=== PATIENT | female | born 1990 | race Caucasian/White ===

== ENCOUNTER 2016-09-28 00:11 | Inpatient (IN) | payer OTHER ==
[2016-09-28] VITALS (10 sets, daily range): BP systolic 86–103; BP diastolic 48–63; PULSE 92–136; TEMP 36.7–38.7; O2SAT 95–100; Ht 167.6 cm; Wt 64.3 kg
[~2016-09-28] VITALS: Ht 167.6 cm; Wt 64.3 kg
[2016-09-28] MEDS ORDERED: SODIUM CHLORIDE 0.9% 1000ML 2,000 ML IV STA (00:49)
[2016-09-28] MEDS ORDERED: LORAZEPAM 2 MG/ML 1 ML VIAL IV STA (00:49)
[2016-09-28] MEDS ORDERED: SODIUM CHLORIDE 0.9% 1000ML 1,000 ML IV STA ×3 (00:49→16:33)
[2016-09-28] MEDS ORDERED: ACETAMINOPHEN 500 MG TAB PO STA ×2 (01:03→04:55)
[2016-09-28] MEDS ORDERED: CEFTRIAXONE SOD INJ 2,000 MG in DEXTROSE 5% 50ML 50 ML IV STA (01:03)
[2016-09-28] MEDS ORDERED: OPTIRAY 320 IV PRN (01:15)
[2016-09-28] MEDS ORDERED: VANCOMYCIN INJ 1,650 MG in SODIUM CHLORIDE 0.9% 500ML 500 ML IV SCH (01:15)
[2016-09-28] MEDS ORDERED: METOCLOPRAMIDE HCL INJ 5 MG/ML 2 ML VIAL IV STA (01:26)
[2016-09-28] MEDS ORDERED: DiphenhydrAMINE HCL 50 MG/ML VIAL IV STA (01:26)
[2016-09-28 01:28] LABS: ISTAT CREATININE 0.7 mg/dl (0.6-1.3); ISTAT HEMOGLOBIN 11.2 g/dl (12.0-16.0); ISTAT IONIZED CALCIUM 0.97 mmol/l (1.12-1.32)
[2016-09-28 01:37] LABS: INR 1.2 (0.9-1.1); PARTIAL THROMBOPLASTIN RATIO 1.4; PROTHROMBIN TIME (PATIENT) 12.4 SECONDS (9.0-12.0)
[2016-09-28] MEDS ORDERED: IBUPROFEN 800 MG TAB PO STA (01:38)
[2016-09-28 01:46] LABS: HEMATOCRIT 30.3 % (37-47); MEAN CELL VOLUME 77.5 fL (80-100); MEAN CORPUSCULAR HEMOGLOBIN 26.6 pg (25-34); MEAN CORPUSCULAR HGB CONC 34.3 g/dl (32-36); MEAN PLATELET VOLUME 12.5 fL (7.4-10.4); PLATELET COUNT 69 K/uL (130-400); RED BLOOD COUNT 3.91 M/uL (4.2-5.4); WHITE BLOOD COUNT 7.93 K/uL (4.8-10.8)
[2016-09-28 01:47] LABS: BASO % 0.1 %; BASO ABS # 0.01 K/uL (0-0.2); COMPLETE YES; EOS % 0.5 %; IG% 0.8 %; LYMPH % 7.1 %; LYMPH ABS # 0.56 K/uL (1.2-3.4); MONO % 9.6 %; NEUT % 81.9 %; PLT ESTIMATE DECREASED
[2016-09-28] MEDS ORDERED: IBUPROFEN 600 MG TAB ONE (01:47)
[2016-09-28] MEDS ORDERED: IBUPROFEN 200 MG TAB ONE (01:47)
[2016-09-28 01:52] LABS: ALT/SGPT 22 U/L (12-78); AST/SGOT 36 U/L (15-37); BLOOD UREA NITROGEN 10 mg/dl (7-18); BUN/CREATININE RATIO 12.4 (10-20); CALCIUM 7.9 mg/dl (8.5-10.1); CARBON DIOXIDE 26 mmol/L (21-32); CHLORIDE 93 mmol/L (98-107); CREATININE 0.81 mg/dl (0.60-1.20); GLUCOSE 118 mg/dl (70-99); POTASSIUM 3.4 mmol/L (3.5-5.1); SODIUM 130 mmol/L (136-145)
[2016-09-28 01:57] LABS: PREG INTERNAL NEGATIVE QC NEG CLEAR BACKGROUND; PREG INTERNAL POSITIVE QC POS CONTROL LINE
[2016-09-28] MEDS ORDERED: CLON0.1T12 (02:01)
[2016-09-28 02:03] LABS: ACETAMINOPHEN < 2 ug/ml (10-30); ALB/GLOB RATIO 0.7 (0.9-2); ALKALINE PHOSPHATASE 73 U/L (45-117); CKMB/CK RATIO 0.2 (0-3.0); THYROID STIMULATING HORMONE 0.355 uIu/ml (0.300-4.500)
[2016-09-28 02:12] LABS: PROCALCITONIN 6.66 ng/mL (0-0.5)
--- NOTE | 2016-09-28 04:33 | EMERGENCY ROOM VISIT NOTE ---
History First contact with patient: 00:27 Chief Complaint: RIB PAIN Stated Complaint: POSSIBLE BROKEN RIB,POSSIBLY DRUGGED History of Present Illness The patient is a 25 year old female who presents to the Emergency Room with complaints of chest pain, fever, chills for the past day. Patient states she woke up today at noon and the [employer]. She has no idea how she got there. Patient states last thing she remembers she was going out with her friends Mike night. She cannot recall any other events. Patient is currently reliving with her parents. Patient states she took 24 tablets of some type of medication that might of been Tylenol, Motrin or something else. Patient is unsure. She states she is trying to get the pain to go away in her chest. Patient is screaming and yelling at staff and making it difficult to obtain a history. Patient is unsure of what happened to her. Patient denies abdominal pain, cough, congestion, vomiting, diarrhea, headache, neck stiffness. Patient adamantly denies IV drug abuse despite the fact she has multiple track marcano all throughout her body. Review of Systems See HPI for pertinent positives & negatives. A total of 10 systems reviewed and were otherwise negative. Past Medical/Surgical History Medical Problems: (1) Alcohol Abuse-Unspec (2) Attn Deficit W Hyperact (3) Cannabis Abuse-Unspec (4) Depressive Disorder Nec (5) Oppositional Defiant Disorder (6) Ovarian cyst (7) Pelvic inflammatory disease (8) Tobacco Use Disorder Family History No significant family history Social History Smoking Status: Never Smoker Alcohol Use: occasionally Drug Use: marijuana Housing Status: lives with family, lives with friends Occupation Status: unemployed Current/Historical Medications Miscellaneous Medications Clonidine Hcl (Catapres) Allergies Coded Allergies: No Known Allergies (Verified , 07/08/14) Physical Exam Vital Signs Date Time Temp Pulse Resp B/P Pulse Ox O2 Delivery O2 Flow Rate FiO2 09/28/16 03:35 108 28 121/54 96 Room Air 09/28/16 03:00 119 25 112/49 96 Room Air 09/28/16 02:48 117 09/28/16 02:30 121 30 98 Room Air 09/28/16 02:07 100 Room Air 09/28/16 02:00 133 29 100 Room Air 09/28/16 01:55 129 22 133/70 100 Room Air 09/28/16 00:16 39.5 124 20 117/60 99 Room Air Physical Exam VITALS: Vitals are noted on the nurse's note and reviewed by myself. Vital signs febrile GENERAL: White female yelling and screaming at staff multiple track marcano and skin popping throughout body SKIN: Upper arms with track marcano and skin popping and mottled skin, skin popping to face and chest , bruising to upper and lower extremities The rest of the skin was without rashes, edema. There is no tenting of the skin. Capillary reflex less than 2 seconds. HEAD: Normocephalic atraumatic. EARS: External auditory canals clear, tympanic membranes pearly jeong without erythema or effusion bilaterally. EYES: Pupils equal round and reactive to light and accommodation. Conjunctivae without injection, sclerae without icterus. Extraocular movements intact. NOSE: Patent, turbinates without inflammation or discharge. No sinus tenderness. MOUTH: Mucous membranes mildly dry. Pharynx without erythema or exudate. Uvula midline. Airway patent. Tongue does not deviate. NECK: Supple without nuchal rigidity. No lymphadenopathy. No thyromegaly. Cervical spine is nontender. No JVD. HEART: Regular rate and rhythm 2/6 systolic murmur LUNGS: Clear to auscultation bilaterally without wheezes, rales or rhonchi. No dullness to percussion. No retractions or accessory muscle use., Chest diffusely tender to palpation ABDOMEN: Positive bowel sounds x 4. Normal tympanic percussion. Soft, nontender, without masses or organomegaly. Cruz sign negative. No guarding or rebound tenderness. MUSCULOSKELETAL: No muscle atrophy, erythema, or edema noted. NEURO: Patient was alert and oriented to person place and time. Normal sensation to light and sharp touch. No focal neurological deficits. Medical Decision & Procedures Laboratory Results 09/28/16 01:00 Red Blood Count 3.91, Mean Corpuscular Volume 77.5, Mean Corpuscular Hemoglobin 26.6, Mean Corpuscular Hemoglobin Concent 34.3, Mean Platelet Volume 12.5, Neutrophils (%) (Auto) 81.9, Lymphocytes (%) (Auto) 7.1, Monocytes (%) (Auto) 9.6, Eosinophils (%) (Auto) 0.5, Basophils (%) (Auto) 0.1, Neutrophils # (Auto) 6.50, Lymphocytes # (Auto) 0.56, Monocytes # (Auto) 0.76, Eosinophils # (Auto) 0.04, Basophils # (Auto) 0.01 09/28/16 01:00 Test 09/28/16 01:00 09/28/16 01:10 09/28/16 01:12 09/28/16 01:15 White Blood Count 7.93 K/uL (4.8-10.8) Red Blood Count 3.91 M/uL (4.2-5.4) Hemoglobin 10.4 g/dL (12.0-16.0) Hematocrit 30.3 % (37-47) Mean Corpuscular Volume 77.5 fL (80-100) Mean Corpuscular Hemoglobin 26.6 pg (25-34) Mean Corpuscular Hemoglobin Concent 34.3 g/dl (32-36) Platelet Count 69 K/uL (130-400) Mean Platelet Volume 12.5 fL (7.4-10.4) Neutrophils (%) (Auto) 81.9 % Lymphocytes (%) (Auto) 7.1 % Monocytes (%) (Auto) 9.6 % Eosinophils (%) (Auto) 0.5 % Basophils (%) (Auto) 0.1 % Neutrophils # (Auto) 6.50 K/uL (1.4-6.5) Lymphocytes # (Auto) 0.56 K/uL (1.2-3.4) Monocytes # (Auto) 0.76 K/uL (0.11-0.59) Eosinophils # (Auto) 0.04 K/uL (0-0.5) Basophils # (Auto) 0.01 K/uL (0-0.2) RDW Standard Deviation 38.7 fL (36.4-46.3) RDW Coefficient of Variation 13.7 % (11.5-14.5) Immature Granulocyte % (Auto) 0.8 % Immature Granulocyte # (Auto) 0.06 K/uL (0.00-0.02) Platelet Estimate DECREASED Red Blood Cell Morphology Unremarkable Erythrocyte Sedimentation Rate 53 mm/hr (0-21) Prothrombin Time 12.4 SECONDS (9.0-12.0) Prothromb Time International Ratio 1.2 (0.9-1.1) Activated Partial Thromboplast Time 35.1 SECONDS (21.0-31.0) Partial Thromboplastin Ratio 1.4 Est Creatinine Clear Calc Drug Dose 108.0 ml/min Estimated GFR () 117.8 Estimated GFR (Non- 101.7 BUN/Creatinine Ratio 12.4 (10-20) Calcium Level 7.9 mg/dl (8.5-10.1) Total Bilirubin 0.6 mg/dl (0.2-1) Aspartate Amino Transf (AST/SGOT) 36 U/L (15-37) Alanine Aminotransferase (ALT/SGPT) 22 U/L (12-78) Alkaline Phosphatase 73 U/L (45-117) Total Creatine Kinase 281 U/L (26-192) Creatine Kinase MB 0.7 ng/ml (0.5-3.6) Creatine Kinase MB Ratio 0.2 (0-3.0) Troponin I < 0.015 ng/ml (0-0.045) C-Reactive Protein 23.00 mg/dl (0-0.29) Total Protein 6.6 gm/dl (6.4-8.2) Albumin 2.8 gm/dl (3.4-5.0) Globulin 3.8 gm/dl (2.5-4.0) Albumin/Globulin Ratio 0.7 (0.9-2) Procalcitonin 6.66 ng/mL (0-0.5) Thyroid Stimulating Hormone (TSH) 0.355 uIu/ml (0.300-4.500) Human Chorionic Gonadotropin, Qual NEG (NEG) Chemistry Specimen Hemolysis Salicylates Level < 1.7 mg/dl (2.8-20) Acetaminophen Level < 2 ug/ml (10-30) Bedside Lactic Acid Venous 1.08 mmol/L (0.90-1.70) Ethyl Alcohol mg/dL < 3.0 mg/dl (0-3) Bedside Hemoglobin 11.2 g/dl (12.0-16.0) Bedside Hematocrit 33 % (37-47) Bedside Sodium 127 mEq/L (135-144) Bedside Potassium 3.5 mEq/L (3.3-5.0) Bedside Chloride 91 mEq/L (101-112) Bedside Total CO2 23 mEq/l (24-31) Anion Gap 18.0 mmol/L (16-25) Bedside Blood Urea Nitrogen 10 mg/dl (7-18) Bedside Creatinine 0.7 mg/dl (0.6-1.3) Bedside Glucose (other) 123 mg/dl (70-99) Bedside Ionized Calcium (Ollie) 0.97 mmol/l (1.12-1.32) Test 09/28/16 01:52 HIV (1&2) Ab and P24 Ag, 4th Gener NEG (NEG) Medications Administered Medications (Trade) Dose Ordered Sig/Cami Route Start Time Stop Time Status Last Admin Dose Admin Sodium Chloride 2,000 ml @ 999 mls/hr Q2H1M STAT IV 09/28/16 00:49 09/28/16 02:49 DC 09/28/16 01:45 999 MLS/HR Sodium Chloride (Nss 1000ml) 1,000 ml @ 200 mls/hr Q5H STAT IV 09/28/16 00:49 09/28/16 05:48 09/28/16 01:46 200 MLS/HR Lorazepam 1 mg 1 mg NOW STAT IV 09/28/16 00:49 09/28/16 00:56 DC 09/28/16 00:49 1 MG Vancomycin HCl 1650 mg/Sodium Chloride 533 ml @ 200 mls/hr UD IV 09/28/16 01:15 11/09/16 01:14 09/28/16 02:14 200 MLS/HR Ceftriaxone Sodium/Dextrose (Rocephin Inj/D5 50ml) 70 ml @ 100 mls/hr ONE STAT IV 09/28/16 01:03 09/28/16 01:44 DC 09/28/16 01:46 100 MLS/HR Diphenhydramine HCl (Benadryl Inj) 25 mg NOW STAT IV 09/28/16 01:26 09/28/16 01:27 DC 09/28/16 01:47 25 MG Metoclopramide HCl (Reglan Inj) 10 mg NOW STAT IV 09/28/16 01:26 09/28/16 01:27 DC 09/28/16 01:47 10 MG Ibuprofen (Motrin Tab) 600 mg STK-MED ONCE .ROUTE 09/28/16 01:47 09/28/16 01:48 DC 09/28/16 01:48 600 MG Ibuprofen (Advil Tab) 200 mg STK-MED ONCE .ROUTE 09/28/16 01:47 09/28/16 01:48 DC 4/17/17 01:47 200 MG ED Course Prior records/ancillary studies reviewed. Triage Nursing notes reviewed. The patient's history was concerning for fever, chest pain. Differential diagnosis: Etiologies such as polysubstance abuse, endocarditis, sepsis, UTI, pneumonia, metabolic, electrolyte abnormalities, cardiac sources, intracerebral event, toxicologic, neurologic, as well as others were entertained. Physical examination: As above. Pertinent findings were fever, track marcano. Vital signs reviewed and revealed febrile. ER treatment provided: IV fluid resuscitation with Normal saline solution, 2000 mL bolus. IV fluid hydration with Normal saline solution at 200 mL/hr. Blood and urine cultures Antibiotics: Vancomycin, Rocephin Ativan, Benadryl, Reglan On reassessment the patient vital signs improved. Diagnostics interpretation by me: ECG: Normal sinus, normal intervals, no acute ST-T wave changes, rate of 125. Impression sinus tachycardia interpreted by myself with no QRS widening The labs revealed thrombocytopenia on CBC. Chemistry panel revealed hyponatremia. LFTs revealed. Cardiac enzymes were negative. Serum pro-calcitonin was 6.66 Blood and urine cultures are pending. Imaging studies: Chest xray revealed no acute consolidation, pneumothorax or free air per my interpretation. CTA CTA CHEST: No evidence of pulmonary embolus. Multifocal areas of consolidation some which demonstrate necrosis. Findings may represent metastatic disease, septic emboli, or a vasculitis such as Ward's granulomatosis. Subcentimeter mediastinal and hilar lymph nodes, likely reactive. The thoracic aorta is unremarkable. No pleural effusion. No pneumothorax. The visualized upper abdomen is unremarkable. No acute osseous abnormality. Radiologist: Phil Beaver MD Consultation: A consultation was placed with Dr. Weinstein, hospitalist. The case was discussed and diagnostics were reviewed. The patient was evaluated in the ER for further treatment. Exam and history seem consistent with fever and chest pain with concerns for endocarditis. CT is concerning for septic emboli. Patient has multiple track marcano and skin popping. Patient has a new murmur on clinical exam and has a high fever with chest pain. She will be evaluated by medicine for possible admission and further workup and possible echo. Blood cultures are pending. Elevated pro-calcitonin. She was hydrated as above and started on broad such antibiotics for coverage for possible endocarditis. Patient consented to HIV testing and this was ordered and she was counseled on this. Patient had a negative Tylenol and aspirin level. I am unsure what tablets she took and patient is uncooperative. She had no widening of her QRS on EKG. Patient was reassessed multiple times. She had mottled skin on clinical exam with skin popping and track marcano everywhere. Case reviewed with my attending. Medical Decision As above Impression Primary Impression: Sepsis Additional Impressions: Polysubstance abuse Fever Precordial chest pain Critical Care I have personally spent greater than 30 minutes of critical care time in the direct management of this patient. This includes bedside care, interpretation of diagnostic studies, and testing, discussion with consultants, patient, and family members, and other required patient management activities. This 30 minutes is in excess of all separately billable procedures. Departure Information Dispostion Being Evaluated By Hospitalist Condition FAIR Referrals No Doctor, Assigned (PCP) Patient Instructions My [facility] Problem Qualifiers Primary Impression: Sepsis Sepsis type: sepsis due to unspecified organism Qualified Codes: A41.9 - Sepsis, unspecified organism
[2016-09-28 04:54] LABS: URINE APPEARANCE CLEAR (CLEAR); URINE BILIRUBIN NEG (NEG); URINE COLOR YELLOW; URINE EPITHELIAL CELL AUTO >30 /lpf (0-5); URINE NITRITE NEG (NEG); URINE SPECIFIC GRAVITY 1.016 (1.000-1.030); UROBILINOGEN NEG (NEG); ZZUR CULT IF INDIC CLEAN CATCH YES
[2016-09-28 04:55] LABS: MANUAL MICROSCOPIC REQUIRED? NO; REVIEW REQ? YES
[2016-09-28] MEDS ORDERED: ACETAMINOPHEN 325 MG TAB PO PRN (05:00)
[2016-09-28] MEDS ORDERED: MAGNESIUM HYDROXIDE SUSP 30 ML UDC PO PRN (05:00)
[2016-09-28] MEDS ORDERED: ALUMINUM/MAGNESIUM/SIMETH (MAALOX MAX) 30 ML UDC PO PRN (05:00)
[2016-09-28] MEDS ORDERED: ONDANSETRON INJ 2 MG/ML 2 ML VIAL IV PRN (05:00)
[2016-09-28] MEDS ORDERED: POLYETHYLENE (MIRALAX) 17 GM PACK PO PRN (05:00)
[2016-09-28] MEDS ORDERED: VANCOMYCIN CONSULT ACTIVE PRN (05:15)
[2016-09-28 05:19] LABS: BENZODIAZEPINE, URINE NEG (NEG); COCAINE,URINE NEG (NEG); PHENCYCLIDINE, URINE NEG (NEG)
--- NOTE | 2016-09-28 05:49 | History and Physical ---
History & Physical Date & Time of Service: Sep 28, 2016 at 05:20 Chief Complaint: Possible Broken Rib,Possibly Drugged Primary Care Physician: No Doctor, Assigned History of Present Illness Source: patient, other 25 y/o F with history of IVDU presented due to chest wall pain and fever after waking up in a motel and not recalling how she got there. She was highly belligerent toward staff initially and received Benadryl and Ativan in the ER. She is semiconscious at the time of medical evaluation and could not answer any questions. She stated on arrival that she was out drinking with some friends the previous evening. She denied drug use multiple times despite multiple track marcano over her arms and legs. A fever of 103.5 was confirmed on admission. Unfortunately a CT of the chest revealed multiple septic emboli and suspicion for acute endocarditis is high. Initial labs reveal hyponatremia and thrombocytopenia. When she arrived in the ER she was accompanied by her father however she insisted that he leave and did not wish to share any information with family. Past Medical/Surgical History Medical Problems: (1) Ovarian cyst Status: Chronic (2) Pelvic inflammatory disease Status: Chronic 3) IVDU 4) Tobacco abuse Family History No significant family history Could not obtain from pt Social History Smokes one pack daily for 6-7 years Smoking Status: Current Every Day Smoker Drug Use: heroin, marijuana Occupational Status: unemployed Immunizations History of Influenza Vaccine: No History of Tetanus Vaccine?: Yes History of Pneumococcal: No History of Hepatitis B Vaccine: Yes Multi-Drug Resistant Organisms History of MDRO: No Allergies Coded Allergies: No Known Allergies (Verified , 07/08/14) Home Medications Miscellaneous Medications Clonidine Hcl (Catapres) Review of Systems Could not obtain ROS Physical Exam Vital Signs Date Time Temp Pulse Resp B/P Pulse Ox O2 Delivery O2 Flow Rate FiO2 09/28/16 04:43 37.2 103 25 114/53 96 Room Air 09/28/16 03:35 108 28 121/54 96 Room Air 09/28/16 03:00 119 25 112/49 96 Room Air 09/28/16 02:48 117 09/28/16 02:30 121 30 98 Room Air 09/28/16 02:07 100 Room Air 09/28/16 02:00 133 29 100 Room Air 09/28/16 01:55 129 22 133/70 100 Room Air 09/28/16 00:16 39.5 124 20 117/60 99 Room Air General Appearance: + pertinent finding (Somnolent young female - multiple scabs over face and arms) Head: normocephalic, atraumatic Eyes: normal inspection ENT: + pertinent finding (Could not examine oral cavity) Neck: supple, no JVD, no carotid bruits Respiratory/Chest: chest non-tender, lungs clear, normal breath sounds Cardiovascular: regular rate, rhythm, no edema, no gallop, + systolic murmur Abdomen/GI: normal bowel sounds, non tender, soft Back: normal inspection, no CVA tenderness Extremities/Musculoskelatal: normal inspection, no calf tenderness, normal capillary refill Neurologic/Psych: + pertinent finding (Somnolent - could not cooperate with exam - no focal defecits noted) Skin: + pertinent finding (Multiple scabs over face and arms - multiple needle marcano over arms and feat) Diagnostics Laboratory Results Results Past 24 Hours Test 09/28/16 01:00 09/28/16 01:10 09/28/16 01:12 09/28/16 01:15 Range/Units White Blood Count 7.93 4.8-10.8 K/uL Red Blood Count 3.91 4.2-5.4 M/uL Hemoglobin 10.4 12.0-16.0 g/dL Hematocrit 30.3 37-47 % Mean Corpuscular Volume 77.5 80-100 fL Mean Corpuscular Hemoglobin 26.6 25-34 pg Mean Corpuscular Hemoglobin Concent 34.3 32-36 g/dl Platelet Count 69 130-400 K/uL Mean Platelet Volume 12.5 7.4-10.4 fL Neutrophils (%) (Auto) 81.9 % Lymphocytes (%) (Auto) 7.1 % Monocytes (%) (Auto) 9.6 % Eosinophils (%) (Auto) 0.5 % Basophils (%) (Auto) 0.1 % Neutrophils # (Auto) 6.50 1.4-6.5 K/uL Lymphocytes # (Auto) 0.56 1.2-3.4 K/uL Monocytes # (Auto) 0.76 0.11-0.59 K/uL Eosinophils # (Auto) 0.04 0-0.5 K/uL Basophils # (Auto) 0.01 0-0.2 K/uL RDW Standard Deviation 38.7 36.4-46.3 fL RDW Coefficient of Variation 13.7 11.5-14.5 % Immature Granulocyte % (Auto) 0.8 % Immature Granulocyte # (Auto) 0.06 0.00-0.02 K/uL Platelet Estimate DECREASED Red Blood Cell Morphology Unremarkable Erythrocyte Sedimentation Rate 53 0-21 mm/hr Prothrombin Time 12.4 9.0-12.0 SECONDS Prothromb Time International Ratio 1.2 0.9-1.1 Activated Partial Thromboplast Time 35.1 21.0-31.0 SECONDS Partial Thromboplastin Ratio 1.4 Sodium Level 130 136-145 mmol/L Potassium Level 3.4 3.5-5.1 mmol/L Chloride Level 93 98-107 mmol/L Carbon Dioxide Level 26 21-32 mmol/L Anion Gap 11.0 18.0 16-25 mmol/L Blood Urea Nitrogen 10 7-18 mg/dl Creatinine 0.81 0.60-1.20 mg/dl Est Creatinine Clear Calc Drug Dose 108.0 ml/min Estimated GFR () 117.8 Estimated GFR (Non- 101.7 BUN/Creatinine Ratio 12.4 10-20 Random Glucose 118 70-99 mg/dl Calcium Level 7.9 8.5-10.1 mg/dl Total Bilirubin 0.6 0.2-1 mg/dl Aspartate Amino Transf (AST/SGOT) 36 15-37 U/L Alanine Aminotransferase (ALT/SGPT) 22 12-78 U/L Alkaline Phosphatase 73 45-117 U/L Total Creatine Kinase 281 26-192 U/L Creatine Kinase MB 0.7 0.5-3.6 ng/ml Creatine Kinase MB Ratio 0.2 0-3.0 Troponin I < 0.015 0-0.045 ng/ml C-Reactive Protein 23.00 0-0.29 mg/dl Total Protein 6.6 6.4-8.2 gm/dl Albumin 2.8 3.4-5.0 gm/dl Globulin 3.8 2.5-4.0 gm/dl Albumin/Globulin Ratio 0.7 0.9-2 Procalcitonin 6.66 0-0.5 ng/mL Thyroid Stimulating Hormone (TSH) 0.355 0.300-4.500 uIu/ml Human Chorionic Gonadotropin, Qual NEG NEG Chemistry Specimen Hemolysis Salicylates Level < 1.7 2.8-20 mg/dl Acetaminophen Level < 2 10-30 ug/ml Bedside Lactic Acid Venous 1.08 0.90-1.70 mmol/L Ethyl Alcohol mg/dL < 3.0 0-3 mg/dl Bedside Hemoglobin 11.2 12.0-16.0 g/dl Bedside Hematocrit 33 37-47 % Bedside Sodium 127 135-144 mEq/L Bedside Potassium 3.5 3.3-5.0 mEq/L Bedside Chloride 91 101-112 mEq/L Bedside Total CO2 23 24-31 mEq/l Bedside Blood Urea Nitrogen 10 7-18 mg/dl Bedside Creatinine 0.7 0.6-1.3 mg/dl Bedside Glucose (other) 123 70-99 mg/dl Bedside Ionized Calcium (Ollie) 0.97 1.12-1.32 mmol/l Test 09/28/16 01:52 09/28/16 04:35 Range/Units HIV (1&2) Ab and P24 Ag, 4th Gener NEG NEG Urine Color YELLOW Urine Appearance CLEAR CLEAR Urine pH 6.0 4.5-7.5 Urine Specific [place] 1.016 1.000-1.030 Urine Protein NEG NEG Urine Glucose (UA) NEG NEG Urine Ketones TRACE NEG Urine Occult Blood 1+ NEG Urine Nitrite NEG NEG Urine Bilirubin NEG NEG Urine Urobilinogen NEG NEG Urine Leukocyte Esterase MODERATE NEG Urine WBC (Auto) 10-30 0-5 /hpf Urine RBC (Auto) 0-4 0-4 /hpf Urine Hyaline Casts (Auto) 0 0-5 /lpf Urine Epithelial Cells (Auto) >30 0-5 /lpf Urine Bacteria (Auto) NEG NEG Urine Opiates Screen POS NEG Urine Methadone, Qualitative NEG NEG Urine Barbiturates NEG NEG Urine Phencyclidine (PCP) Level NEG NEG Ur Amphetamine/Methamphetamine POS NEG MDMA (Ecstasy) Screen POS NEG Urine Benzodiazepines Screen NEG NEG Urine Cocaine Metabolite NEG NEG Urine Marijuana (THC) POS NEG Microbiology Results 09/28/16 Blood Culture, Received Pending 09/28/16 Blood Culture, Received Pending 09/28/16 Urine Culture, Received Pending Diagnostic Radiology CT chest - multiple foci of consolidation with necrosis - consistent with granulomatous disease, vasculitis or septic emboli Impression Assessment and Plan 25 y/o F with history of IVDU presented due to chest wall pain and fever after waking up in a motel and not recalling how she got there. She was highly belligerent toward staff initially and received Benadryl and Ativan in the ER. She is semiconscious at the time of medical evaluation and could not answer any questions. She stated on arrival that she was out drinking with some friends the previous evening. She denied drug use multiple times despite multiple track marcano over her arms and legs. A fever of 103.5 was confirmed on admission. Unfortunately a CT of the chest revealed multiple septic emboli and suspicion for acute endocarditis is high. Initial labs reveal hyponatremia and thrombocytopenia. 1) Endocarditis - following an echo, if large vegitations are apparent, we should consider transfer to a tertiary facility. Pt started on Vanc and Ceftriaxone pending culture results. 2) IVDU - will need detox following DC - will treat with Ativan for withdrawal presently. 3) Thrombocytopenia - will repeat CBC at noon - consider eval for DIC if count is lower 4) HypoNA - cause not clear - IVF - recheck BMP noon Full code - SCDs only due to low platelet count pending repeat Total time for this admit including review of labs, meds, imaging - discussion with ER attending and in a limited manner with pt - 42 min Level of Care Telemetry Resuscitation Status FULL RESUSCITATION VTE Prophylaxis VTE Risk Assessment Done? Y/N: Yes Risk Level: High Given or contraindicated: SCD's
[2016-09-28] MEDS ORDERED: HEPARIN SOD 5000 UNIT/0.5 ML CARP SQ SCH (06:00)
--- NOTE | 2016-09-28 06:12 | Pharmacy Progress Note ---
Pharmacy Antibiotic Consult Date of Service: Sep 28, 2016. Pharmacy Dosing Scope Pharmacy is consulted to initiate Vancomycin IV dosing therapy, order appropriate labs and adjust drug dose/frequency. Subjective The patient is a 25 year old female admitted on Sep 28, 2016 at 04:54 for Endocarditis. Patient presented with chest pain, fever and acting quite belligerent toward staff. Upon work up she was found to have evidence of IV drug abuse (track marcano over various parts of her body) and CT of chest revealed that she most likely is suffering from endocarditis. Dr. Weinstein continued Vancomycin and Rocephin she received in the ED. Objective Height (Feet): 5 Height (Inches): 8.00 Weight (Kilograms): 66.000 Lab Results (24hrs): Laboratory Tests Test 09/28/16 01:00 BUN/Creatinine Ratio 12.4 Blood Urea Nitrogen 10 mg/dl Creatinine 0.81 mg/dl White Blood Count 7.93 K/uL Red Blood Count 3.91 M/uL Hemoglobin 10.4 g/dL Hematocrit 30.3 % Mean Corpuscular Volume 77.5 fL Mean Corpuscular Hemoglobin 26.6 pg Mean Corpuscular Hemoglobin Concent 34.3 g/dl Platelet Count 69 K/uL Mean Platelet Volume 12.5 fL Neutrophils (%) (Auto) 81.9 % Lymphocytes (%) (Auto) 7.1 % Monocytes (%) (Auto) 9.6 % Eosinophils (%) (Auto) 0.5 % Basophils (%) (Auto) 0.1 % Neutrophils # (Auto) 6.50 K/uL Lymphocytes # (Auto) 0.56 K/uL Monocytes # (Auto) 0.76 K/uL Eosinophils # (Auto) 0.04 K/uL Basophils # (Auto) 0.01 K/uL Micro Results: Item Value Date Time Urine Culture Received 09/28/16 0435 Urine , Clean Catch Pending Blood Culture Received 09/28/16 0112 Blood Pending Blood Culture Received 09/28/16 0100 Blood Pending Recent Pertinent Medications Item Value Date Time Ceftriaxone 50 ml @ 100 mls/hr 09/28/16 2200 Sodium 1 gm/ Q24H/IV Dextrose Assessment & Plan Loading dose: Vancomycin 1650mg (~25mg/kg) IV X 1 dose then: Vancomycin 1gm (~ 15mg/kg) IV every 8 hours thereafter. I estimated her half life at around 7 hours. I will check a trough level prior to 1200 dose on 09/29/16. Goal trough level estimate: between 15-20 mcg/mL. Pharmacy will continue to follow and will adjust dose/frequency as necessary. Thank you
[2016-09-28] MEDS: D5NSS + 20MEQ KCL 1,000 ML IV SCH ×2 (06:24→14:10)
--- NOTE | 2016-09-28 07:15 | DIAGNOSTIC IMAGING REPORT ---
CHEST ONE VIEW PORTABLE HISTORY: Sepsis COMPARISON: None. FINDINGS: Bilateral hilar prominence. A few small scattered patchy airspace opacities. No pneumothorax. No pleural effusions. The heart is normal in size. IMPRESSION: Small scattered patchy airspace opacities. This favors a pneumonia. There is bilateral hilar prominence which could represent lymphadenopathy. Electronically signed by: Arnie Encarnacion M.D. 09/28/2016 7:13 AM Dictated Date/Time: 09/28/2016 7:12 AM
--- NOTE | 2016-09-28 07:22 | DIAGNOSTIC IMAGING REPORT ---
CHEST CTA for PULMONARY ARTERIES CT DOSE: 336.15 mGy.cm HISTORY: Chest pain dyspnea TECHNIQUE: Multiaxial CT images of the chest were performed following the intravenous administration of contrast to evaluate the pulmonary arteries. Maximal intensity projection images were also obtained. COMPARISON STUDY: None. FINDINGS: Thoracic aorta is normal in course and caliber. Multiple partially necrotic nodules throughout both hemithoraces. Diagnostic considerations include metastatic disease, septic emboli, versus Joanne's granulomatosis. Pulmonary vasculature enhances appropriately. No filling defects. Moderate mediastinal and/or hilar nodes. IMPRESSION: 1. Study is negative for pulmonary embolus. 2. Multifocal areas of centrally necrotic infiltrative change. Differential is as discussed above. 3. Electronically signed by: Gabino Ness M.D. 09/28/2016 7:19 AM Dictated Date/Time: 09/28/2016 7:16 AM
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
[2016-09-28 08:48] LABS: INFLUENZA A PCR Neg for Influ A (NEG); INFLUENZA B PCR Neg for Influ B (NEG)
[2016-09-28 08:50] LABS: HEMATOCRIT 29.1 % (37-47); MEAN CELL VOLUME 77.4 fL (80-100); MEAN CORPUSCULAR HEMOGLOBIN 26.1 pg (25-34); MEAN CORPUSCULAR HGB CONC 33.7 g/dl (32-36); MEAN PLATELET VOLUME 12.2 fL (7.4-10.4); PLATELET COUNT 65 K/uL (130-400); RED BLOOD COUNT 3.76 M/uL (4.2-5.4); WHITE BLOOD COUNT 6.78 K/uL (4.8-10.8)
[2016-09-28 08:55] LABS: INR 1.2 (0.9-1.1); PARTIAL THROMBOPLASTIN RATIO 1.5; PROTHROMBIN TIME (PATIENT) 12.6 SECONDS (9.0-12.0)
[2016-09-28 09:07] LABS: ALB/GLOB RATIO 0.7 (0.9-2); CREATININE 0.62 mg/dl (0.60-1.20); MAGNESIUM 1.7 mg/dl (1.8-2.4); PHOSPHORUS 2.3 mg/dl (2.5-4.9); POTASSIUM 3.1 mmol/L (3.5-5.1)
[2016-09-28 09:15] LABS: BASO % 0.3 %; BASO ABS # 0.02 K/uL (0-0.2); COMPLETE YES; EOS % 0.1 %; IG% 1.5 %; LARGE PLATELETS 1+; LYMPH % 7.2 %; LYMPH ABS # 0.49 K/uL (1.2-3.4); MONO % 12.4 %; NEUT % 78.5 %
--- NOTE | 2016-09-28 10:16 | Progress Note ---
Progress Note Date of Service Sep 28, 2016. Progress Note ID Consult Dictated # [id number] A/P: 1. Likely right sided IE with septic pulm emboli in pt with active IVDA -Continue abx pending blood cultures, echo results -May need ANAYA, MRI brain -Will follow, thank you, see consult for further details
[2016-09-28] MEDS: MAGNESIUM SULFATE 1GM / D5W 1 GM in PREMIXED IN D5W 100 ML IV SCH ×2 (10:27→11:29)
[2016-09-28] MEDS ORDERED: POTASSIUM CHLORIDE 20 MEQ TABCR PO ONE (11:29)
--- NOTE | 2016-09-28 11:42 | ECHOCARDIOGRAM REPORT ---
*NOTICE TO RECEIVING LIBERTARIAN AGENCY This information is strictly Confidential and protected under [place] law. [place] law prohibits you from making any further disclosure of this information unless further disclosure is expressly permitted by the written consent of the person to whom it pertains or is authorized by law. A general authorization for the release of medical or other information is not sufficient for this purpose. Hospital accepts no responsibility if the information is made available to any other person, INCLUDING THE PATIENT. Interpretation Summary * Name: DAMI JUDD Study Date: 09/28/2016 09:58 AM BP: 110/55 mmHg * Patient Location: C.2T\S\S241\S\2 HR: 102 * : 1990 (M/d/yyyy) Gender: Female Height: 68 in * Age: 25 yrs Ethnicity: CA Weight: 145 lb * Ordering Physician: Geronimo Weinstein * Performed By: Larissa Cheney * * Reason For Study: ENDOCARDITIS * BSA: 1.8 m2 * -- Conclusions -- * 1. Normal left ventricular systolic function. EF 60%. No regional wall motion abnormalities. No left ventricular hypertrophy. No significant diastolic dysfunction. * 2. Large echodensity on tricuspid valve leaflet; possible vegetation. * 3. Normal estimated right ventricular systolic pressure. * 4. No prior study available for comparison. Procedure Details * A complete two-dimensional transthoracic echocardiogram was performed (2D, M-mode, Doppler and color flow Doppler). Left Ventricle * The left ventricle is normal in size. * There is normal left ventricular wall thickness. * Left ventricular systolic function is normal. * The left ventricular wall motion is normal. Right Ventricle * The right ventricle is normal in size and function. * The right ventricular systolic function is normal as assessed by tricuspid annular plane systolic excursion (TAPSE) (normal >1.5 cm). Atria * The left atrial size is normal. * Right atrial size is normal. * There is no evidence of atrial septal defect, but resolution does not allow assessment for a patent foramen ovale. Mitral Valve * The mitral valve leaflets appear normal. There is no evidence of stenosis, fluttering, or prolapse. * Significant mitral regurgitation is absent. Tricuspid Valve * Large echodensity on tricuspid valve leaflet; possible vegetation. * There is no tricuspid stenosis. * There is mild tricuspid regurgitation. Aortic Valve * The aortic valve is normal in structure and function. * The aortic valve is trileaflet. * No hemodynamically significant valvular aortic stenosis. * No aortic regurgitation is present. Pulmonic Valve * The pulmonic valve is not well seen, but is grossly normal. * There is no pulmonic valvular stenosis. * Mild pulmonic valvular regurgitation. Great Vessels * The aortic root is normal size. * Ascending aorta of normal dimension * Aortic arch of normal dimension. Pericardium/Pleural * There is no pericardial effusion. Great Vessels * Normal inferior vena cava size and collapsability with sniff indicates a normal right atrial pressure of 3 mmHg MMode 2D Measurements and Calculations IVSd 1.1 cm IVSs 1.5 cm LVIDd 4.0 cm LVIDs 2.7 cm LVPWd 0.91 cm LVPWs 1.5 cm IVS/LVPW 1.2 FS 31.8 % EDV(Teich) 69.1 ml ESV(Teich) 27.4 ml EF(Teich) 60.4 % EDV(cubed) 63.0 ml ESV(cubed) 20.0 ml EF(cubed) 68.2 % % IVS thick 36.0 % % LVPW thick 67.6 % LV mass(C)d 125.4 grams LV mass(C)dI 70.4 grams/m\S\2 LV mass(C)s 139.2 grams LV mass(C)sI 78.1 grams/m\S\2 SV(Teich) 41.7 ml SI(Teich) 23.4 ml/m\S\2 SV(cubed) 42.9 ml SI(cubed) 24.1 ml/m\S\2 Ao root diam 2.6 cm Ao root area 5.4 cm\S\2 ACS 1.5 cm LA dimension 2.7 cm asc Aorta Diam 2.4 cm LA/Ao 1.0 LVOT diam 1.9 cm LVOT area 2.7 cm\S\2 LVAd ap4 24.4 cm\S\2 LVLd ap4 8.1 cm EDV(MOD-sp4) 60.2 ml EDV(sp4-el) 62.7 ml LVAs ap4 13.6 cm\S\2 LVLs ap4 6.3 cm ESV(MOD-sp4) 24.6 ml ESV(sp4-el) 25.0 ml EF(MOD-sp4) 59.1 % EF(sp4-el) 60.2 % LVAd ap2 25.8 cm\S\2 LVLd ap2 7.9 cm EDV(MOD-sp2) 69.0 ml EDV(sp2-el) 71.6 ml LVAs ap2 15.1 cm\S\2 LVLs ap2 6.6 cm ESV(MOD-sp2) 27.1 ml ESV(sp2-el) 29.1 ml EF(MOD-sp2) 60.7 % EF(sp2-el) 59.3 % LVLd %diff -2.37 % EDV(MOD-bp) 65.5 ml LVLs %diff 4.8 % ESV(MOD-bp) 26.1 ml EF(MOD-bp) 60.2 % SV(MOD-sp4) 35.6 ml SI(MOD-sp4) 20.0 ml/m\S\2 SV(MOD-sp2) 41.9 ml SI(MOD-sp2) 23.5 ml/m\S\2 SV(MOD-bp) 39.4 ml SI(MOD-bp) 22.1 ml/m\S\2 SV(sp4-el) 37.7 ml SI(sp4-el) 21.1 ml/m\S\2 SV(sp2-el) 42.5 ml SI(sp2-el) 23.8 ml/m\S\2 Doppler Measurements and Calculations MV E max zander 75.5 cm/sec MV A max zander 52.6 cm/sec MV E/A 1.4 MV dec time 0.18 sec Ao V2 max 114.3 cm/sec Ao max PG 5.2 mmHg Ao max PG (full) 1.4 mmHg MARLYN(V,A) 2.3 cm\S\2 MARLYN(V,D) 2.3 cm\S\2 LV V1 max PG 3.8 mmHg LV V1 max 97.5 cm/sec PA V2 max 73.6 cm/sec PA max PG 2.2 mmHg TR max zander 209.1 cm/sec RVSP(TR) 20.5 mmHg RAP systole 3.0 mmHg
[2016-09-28] MEDS: VANCOMYCIN INJ 1,000 MG in SODIUM CHLORIDE 0.9% 250ML 250 ML IV SCH ×2 (12:14→22:17)
[2016-09-28 13:02] LABS: HEMATOCRIT 29.7 % (37-47); MEAN CORPUSCULAR HEMOGLOBIN 26.6 pg (25-34); MEAN CORPUSCULAR HGB CONC 33.7 g/dl (32-36); MEAN PLATELET VOLUME 12.1 fL (7.4-10.4); PLATELET COUNT 64 K/uL (130-400); RED BLOOD COUNT 3.76 M/uL (4.2-5.4); WHITE BLOOD COUNT 4.37 K/uL (4.8-10.8)
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
[2016-09-28 13:56] LABS: BUN/CREATININE RATIO 10.8 (10-20); CREATININE 0.68 mg/dl (0.60-1.20); POTASSIUM 3.9 mmol/L (3.5-5.1)
[2016-09-28] MEDS: LORAZEPAM 2 MG/ML 1 ML VIAL IV PRN (14:18)
[2016-09-28] MEDS: ACETAMINOPHEN IV 1,000 MG in EMPTY BAG 0 ML IV SCH (16:24)
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
[2016-09-28] MEDS ORDERED: hydrOXYzine HCL 25 MG TAB PO PRN (19:45)
[2016-09-28] MEDS: POTASSIUM CHLORIDE 20 MEQ TABCR PO SCH (21:46)
[2016-09-28] MEDS: CEFTRIAXONE SOD INJ 1 GM in DEXTROSE 5% ADD-VANTAGE 50ML 50 ML IV SCH (21:46)
[2016-09-28] MEDS: HYDROmorphone INJ 1 MG/ML SYR IV PRN (21:47)
[2016-09-28] MEDS: ACETAMINOPHEN 325 MG TAB PO SCH (23:30)
[2016-09-28 23:54] LABS: RAPID PLASMA REAGIN NONREACTIVE (NONREACT)
[2016-09-29] VITALS (7 sets, daily range): BP systolic 104–125; BP diastolic 64–80; PULSE 97–140; TEMP 36.5–39.4; O2SAT 94–100
[2016-09-29] MEDS: LORAZEPAM 2 MG/ML 1 ML VIAL IV PRN ×4 (00:31→19:22)
[2016-09-29] MEDS: ACETAMINOPHEN IV 1,000 MG in EMPTY BAG 0 ML IV SCH (00:32)
[2016-09-29] MEDS: HYDROmorphone INJ 1 MG/ML SYR IV PRN ×5 (02:22→22:49)
[2016-09-29] MEDS: VANCOMYCIN INJ 1,000 MG in SODIUM CHLORIDE 0.9% 250ML 250 ML IV SCH ×3 (05:36→19:32)
[2016-09-29 05:57] LABS: MEAN CORPUSCULAR HGB CONC 33.1 g/dl (32-36)
[2016-09-29 06:06] LABS: INR 1.1 (0.9-1.1); PARTIAL THROMBOPLASTIN RATIO 1.2; PROTHROMBIN TIME (PATIENT) 11.4 SECONDS (9.0-12.0)
[2016-09-29 06:21] LABS: ALT/SGPT 20 U/L (12-78); AST/SGOT 32 U/L (15-37); BLOOD UREA NITROGEN 5 mg/dl (7-18); BUN/CREATININE RATIO 9.5 (10-20); CALCIUM 7.3 mg/dl (8.5-10.1); CARBON DIOXIDE 24 mmol/L (21-32); CHLORIDE 111 mmol/L (98-107); CREATININE 0.56 mg/dl (0.60-1.20); GLUCOSE 137 mg/dl (70-99); MAGNESIUM 1.8 mg/dl (1.8-2.4); POTASSIUM 3.9 mmol/L (3.5-5.1); SODIUM 141 mmol/L (136-145)
[2016-09-29 06:22] LABS: HEMATOCRIT 30.5 % (37-47); MEAN CELL VOLUME 79.4 fL (80-100); MEAN CORPUSCULAR HEMOGLOBIN 26.3 pg (25-34); RED BLOOD COUNT 3.84 M/uL (4.2-5.4); WHITE BLOOD COUNT 5.57 K/uL (4.8-10.8)
[2016-09-29 06:25] LABS: PLATELET COUNT 74 K/uL (130-400); PLT ESTIMATE DECREASED
[2016-09-29 06:36] LABS: ALB/GLOB RATIO 0.6 (0.9-2); ALKALINE PHOSPHATASE 82 U/L (45-117); PHOSPHORUS 1.2 mg/dl (2.5-4.9)
[2016-09-29] MEDS ORDERED: POTASSIUM PHOS 3 MMOL/1 ML INFUSION IV STA (06:54)
[2016-09-29] MEDS ORDERED: POTASSIUM PHOSPHATE INJ 21 MMOL in SODIUM CHLORIDE 0.9% 500ML 500 ML IV ONE (07:15)
[2016-09-29] MEDS: POTASSIUM CHLORIDE 20 MEQ TABCR PO SCH ×2 (08:04→21:00)
[2016-09-29] MEDS: ACETAMINOPHEN 325 MG TAB PO SCH ×4 (08:04→20:00)
[2016-09-29] MEDS ORDERED: ACETAMINOPHEN 325 MG TAB ONE (08:08)
[2016-09-29] MEDS: MAGNESIUM CHLORIDE 64MG DELAYED REL TAB PO SCH (08:13)
--- NOTE | 2016-09-29 09:07 | Family Medicine Progress Note ---
Progress Note Date of Service Sep 29, 2016. Subjective Pt evaluation today including: conversation w/ patient, physical exam, chart review, lab review, review of studies, review of inpatient medication list Voiding: no voiding problems, no incontinence No acute events overnight. Appears more alert this morning. Cannot remember what her diagnosis is however despite discuss multiple times yesterday and writing it down for her. Appears somnolent at times and other times seen picking at her face. Chest pain continues but now just on deep inspiration. Denies shortness of breath. All Other Systems: Reviewed and Negative Medications Current Inpatient Medications Medications (Trade) Dose Ordered Sig/Cami Route Start Time Stop Time Status Last Admin Dose Admin Ioversol (Optiray 320) 100 ml UD PRN IV 09/28/16 01:15 10/02/16 01:14 Al Hydrox/Mg Hydrox/Simethicone (Maalox Max Susp) 15 ml Q4H PRN PO 09/28/16 05:00 10/28/16 04:59 Magnesium Hydroxide (Milk Of Magnesia Susp) 30 ml Q12H PRN PO 09/28/16 05:00 10/28/16 04:59 Ondansetron HCl (Zofran Inj) 4 mg Q6H PRN IV 09/28/16 05:00 10/28/16 04:59 Polyethylene 17 gm 17 gm DAILY PRN PO 09/28/16 05:00 10/28/16 04:59 Vancomycin HCl 1000 mg/Sodium Chloride 270 ml @ 125 mls/hr Q8H IV 09/28/16 12:00 11/09/16 11:59 09/29/16 05:36 125 MLS/HR Ceftriaxone Sodium/Dextrose (Rocephin Inj/ Dextrose Add-[place] 50ML) 50 ml @ 100 mls/hr Q24H IV 09/28/16 22:00 11/09/16 21:59 09/28/16 21:46 100 MLS/HR Lorazepam (Ativan Inj) 1 mg Q3H PRN IV 09/28/16 05:00 10/28/16 04:59 09/29/16 05:36 1 MG Vancomycin HCl (Consult) 1 ea UD PRN N/A 09/28/16 05:15 10/28/16 05:14 Potassium Chloride (Klor-Con Tab) 20 meq BID PO 09/28/16 21:00 10/28/16 20:59 09/29/16 08:04 20 MEQ Hydromorphone HCl (Dilaudid Inj) 1 mg Q4H PRN IV 09/28/16 16:00 10/12/16 15:59 09/29/16 08:05 1 MG Hydroxyzine HCl 25 mg 25 mg TID PRN PO 09/28/16 19:45 10/28/16 19:44 Potassium Phosphate/Sodium Chloride (Potassium Phosphate Inj/Nss 500ml) 507 ml @ 144.857 mls/hr TODAY@0715 ONCE IV 09/29/16 07:15 09/29/16 10:44 09/29/16 08:12 144.857 MLS/HR Magnesium Chloride (Slow-Mag Tab) 64 mg QAM PO 09/29/16 09:00 10/29/16 08:59 09/29/16 08:13 64 MG Acetaminophen (Tylenol Tab) 650 mg Q4HWA PO 09/29/16 08:00 10/29/16 07:59 09/29/16 08:04 650 MG Objective Vital Signs Date Time Temp Pulse Resp B/P Pulse Ox O2 Delivery O2 Flow Rate FiO2 09/29/16 06:41 36.6 119 19 125/80 97 Room Air 09/29/16 04:00 Room Air 09/29/16 03:58 36.5 97 16 104/64 94 Room Air 09/29/16 00:30 Room Air 09/28/16 23:14 36.9 108 16 94/57 96 Room Air 09/28/16 20:00 Room Air 09/28/16 19:47 36.9 107 22 95/59 97 Room Air 09/28/16 16:00 97 Room Air 09/28/16 15:11 38.7 106 20 94/48 97 Room Air 09/28/16 12:00 95 Room Air 09/28/16 10:57 36.7 102 24 92/60 100 Room Air Physical Exam General Appearance: WD/WN, no apparent distress Eyes: normal inspection, PERRL, EOMI Neck: supple, no JVD Respiratory/Chest: no respiratory distress, no accessory muscle use, + crackles (improved but taking shallow breaths due to pain), + pertinent finding (pain on inspiration) Cardiovascular: regular rate, rhythm, no murmur Abdomen: normal bowel sounds, non tender, soft Extremities: no pedal edema, no calf tenderness, normal capillary refill Neurologic/Psychiatric: 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 nml as tested, no motor/sensory deficits, alert, oriented x 3 Skin: + pertinent finding (scab marcano on face.) Laboratory Results 09/29/16 05:08 09/29/16 05:08 Test 09/28/16 12:45 09/29/16 05:08 Mean Platelet Volume 12.1 fL (7.4-10.4) Red Blood Count 3.84 M/uL (4.2-5.4) Mean Corpuscular Volume 79.4 fL (80-100) Mean Corpuscular Hemoglobin 26.3 pg (25-34) Mean Corpuscular Hemoglobin Concent 33.1 g/dl (32-36) RDW Standard Deviation 40.7 fL (36.4-46.3) RDW Coefficient of Variation 14.1 % (11.5-14.5) Platelet Estimate DECREASED Prothrombin Time 11.4 SECONDS (9.0-12.0) Prothromb Time International Ratio 1.1 (0.9-1.1) Activated Partial Thromboplast Time 31.5 SECONDS (21.0-31.0) Partial Thromboplastin Ratio 1.2 Anion Gap 6.0 mmol/L (3-11) Est Creatinine Clear Calc Drug Dose 144.9 ml/min Estimated GFR () > 150.0 Estimated GFR (Non- 130.5 BUN/Creatinine Ratio 9.5 (10-20) Calcium Level 7.3 mg/dl (8.5-10.1) Phosphorus Level 1.2 mg/dl (2.5-4.9) Magnesium Level 1.8 mg/dl (1.8-2.4) Total Bilirubin 0.4 mg/dl (0.2-1) Aspartate Amino Transf (AST/SGOT) 32 U/L (15-37) Alanine Aminotransferase (ALT/SGPT) 20 U/L (12-78) Alkaline Phosphatase 82 U/L (45-117) Total Protein 5.1 gm/dl (6.4-8.2) Albumin 1.9 gm/dl (3.4-5.0) Globulin 3.2 gm/dl (2.5-4.0) Albumin/Globulin Ratio 0.6 (0.9-2) Assessment and Plan 25 yo with Hx IVDU admitted with chest pain, fever, chills. Diagnosed right sided infective endocarditis secondary to IVDU with septic emboli Suspected right sided infective endocarditis - echo - vegetation on tricuspid but the valve itself is functioning relatively normally - Septic emboli to lung - Appreciate ID recommendations - BC - preliminary staph - treat only chest pain with Dilaudid. CAMI acetaminophen for pain/fever Altered mental status - off and on somnolent state. No focal neurology. 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 Secondary to methamphetamine use. Hypophosphatemia - will replace with IV [address] on oral replacements, monitor daily. GI losses vs. malnutrition vs. refeeding. Thrombocytopenia - monitor, suspect secondary to sepsis, improving Code - Full VTE Prophylaxis - not for chemical due to thrombocytopenia and low risk. Labile emotional state therefore SCDs and TEDs more likely to be harmful than beneficial Disposition - remain on telemetry due to severity of illness Resident Tracking Resident Involvement: Resident Care Provided Care Provided: Adult Hospital Medicine
[2016-09-29] MEDS ORDERED: VANCOMYCIN TROUGH SCH (11:30)
--- NOTE | 2016-09-29 13:19 | Pharmacy Progress Note ---
Pharmacy Antibiotic Prog Note Date of Service Sep 29, 2016. Subjective The patient is currently receiving Vancomycin 1000 mg IV every 8 hours per pharmacy consult. Pt also receiving Rocephin 1gm IV [id number] per provider dosing. The patient is currently on day # 2 of antibiotic IV therapy. Objective Height (Feet): 5 Height (Inches): 6.00 Weight (Kilograms): 65.800 Levels: Item Value Date Time Vancomycin Level Trough 18.6 mcg/ml 09/29/16 0945 Lab Results (24hrs): Laboratory Tests Test 09/29/16 05:08 BUN/Creatinine Ratio 9.5 Blood Urea Nitrogen 5 mg/dl Creatinine 0.56 mg/dl White Blood Count 5.57 K/uL Micro Results: Item Value Date Time Blood Culture Received 09/29/16 1000 Blood Pending Blood Culture Received 09/29/16 0945 Blood Pending Urine Culture - Final Complete 09/28/16 0435 Urine , Clean Catch MORE THAN THREE TYPES OF ORGANISMS TN... Blood Culture - Preliminary Resulted 09/28/16 0112 Blood Staph Species Blood Culture - Preliminary Resulted 09/28/16 0100 Blood Staph Species Assessment & Plan Vancomycin * Blood cultures 2/2 positive for Staph species. * Trough level this morning is therapeutic at 18.6 mcg/ml. * Will continue current regimen of Vancomycin 1gm IV [id number]. * Goal trough 15- 20 mcg/ml. Will obtain another trough on 10/01 prior to the 0400 dose. Rocephin * Continue Rocephin per provider dosing. Pharmacy will continue to follow and will adjust dose/frequency as necessary. Thank you
--- NOTE | 2016-09-29 13:40 | Progress Note ---
Subjective Date of Service: Sep 29, 2016. Subjective Pt evaluation today including: conversation w/ patient, physical exam, chart review, lab review pt much more awake today. states she is still having rib pain, on pain meds. falling asleep at time during exam. States + f/c chills overnight. tmax 38.7. Spoke with cardio, large mass on TV, ct with evidence of septic pulm emboli and now initial blood cultures with staph species. Repeat cultures being drawn during my exam. She is asking when she can have visitors. States her family was in to visit yesterday. Eating well. Denies n/v/d. No cardenas. RPR negative, HIV negative, HCV ordered today. All remaining ros reviewed and are negative. Problem List Medical Problems: (1) Fever Status: Acute (2) Polysubstance abuse Status: Acute (3) Precordial chest pain Status: Acute (4) Sepsis Status: Acute Objective Vital Signs Date Time Temp Pulse Resp B/P Pulse Ox O2 Delivery O2 Flow Rate FiO2 09/29/16 08:00 94 Room Air 09/29/16 06:41 36.6 119 19 125/80 97 Room Air 09/29/16 04:00 Room Air 09/29/16 03:58 36.5 97 16 104/64 94 Room Air 09/29/16 00:30 Room Air 09/28/16 23:14 36.9 108 16 94/57 96 Room Air 09/28/16 20:00 Room Air 09/28/16 19:47 36.9 107 22 95/59 97 Room Air 09/28/16 16:00 97 Room Air 09/28/16 15:11 38.7 106 20 94/48 97 Room Air 09/28/16 12:00 95 Room Air Physical Exam General Appearance: WD/WN, no apparent distress Eyes: normal inspection, EOMI Neck: supple Respiratory/Chest: lungs clear, normal breath sounds, no respiratory distress Cardiovascular: regular rate, rhythm, no edema, no murmur Abdomen: non tender, soft Extremities: non-tender, normal inspection, no pedal edema Neurologic/Psychiatric: alert, oriented x 3 Skin: + pertinent finding (multiple skin lesions, likely self induced, pt "picks") Laboratory Results Last 24 Hours Test 09/28/16 12:45 09/29/16 05:09/29/16 09:45 White Blood Count 4.37 K/uL 5.57 K/uL Red Blood Count 3.76 M/uL 3.84 M/uL Hemoglobin 10.0 g/dL 10.1 g/dL Hematocrit 29.7 % 30.5 % Mean Corpuscular Volume 79.0 fL 79.4 fL Mean Corpuscular Hemoglobin 26.6 pg 26.3 pg Mean Corpuscular Hemoglobin Concent 33.7 g/dl 33.1 g/dl RDW Standard Deviation 40.0 fL 40.7 fL RDW Coefficient of Variation 13.9 % 14.1 % Platelet Count 64 K/uL 74 K/uL Mean Platelet Volume 12.1 fL Sodium Level 140 mmol/L 141 mmol/L Potassium Level 3.9 mmol/L 3.9 mmol/L Chloride Level 108 mmol/L 111 mmol/L Carbon Dioxide Level 23 mmol/L 24 mmol/L Anion Gap 9.0 mmol/L 6.0 mmol/L Blood Urea Nitrogen 7 mg/dl 5 mg/dl Creatinine 0.68 mg/dl 0.56 mg/dl Est Creatinine Clear Calc Drug Dose 119.3 ml/min 144.9 ml/min Estimated GFR () 141.9 > 150.0 Estimated GFR (Non- 122.4 130.5 BUN/Creatinine Ratio 10.8 9.5 Random Glucose 157 mg/dl 137 mg/dl Calcium Level 7.0 mg/dl 7.3 mg/dl Magnesium Level 3.0 mg/dl 1.8 mg/dl Platelet Estimate DECREASED Prothrombin Time 11.4 SECONDS Prothromb Time International Ratio 1.1 Activated Partial Thromboplast Time 31.5 SECONDS Partial Thromboplastin Ratio 1.2 Phosphorus Level 1.2 mg/dl Total Bilirubin 0.4 mg/dl Aspartate Amino Transf (AST/SGOT) 32 U/L Alanine Aminotransferase (ALT/SGPT) 20 U/L Alkaline Phosphatase 82 U/L Total Protein 5.1 gm/dl Albumin 1.9 gm/dl Globulin 3.2 gm/dl Albumin/Globulin Ratio 0.6 Vancomycin Level Trough 18.6 mcg/ml Assessment and Plan (1) Endocarditis Assessment & Plan: Continue current abx, await sensitivities staph. Echo with veg, ? eval for surgery. repeat cultures pending. hcv ab ordered. (2) Polysubstance abuse
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
--- NOTE | 2016-09-29 17:19 | Progress Note ---
Progress Note Date of Service Sep 29, 2016. Progress Note Resident Physician Supervision Note: I interviewed and examined the patient. Discussed with Dr. Begum and agree with findings and plan as documented in the note. Any exceptions or clarifications are listed here: None Documented By: Phil Webster ~1hr spent in direct care of patient today. was agitated and wanting to leave. wanted to go outside to smoke a cigarette. wanted to talk to boyfriend. discussed that she can't smoke, but that we'd try whatever we could to help her be able to make her phone call, and could treat nicotine w patches/gum/ativan. she declined. perseverated on cigarettes and call to boyfriend. discussed seriousness of illness and risk of or permanent cardiopulmonary consequences if leaving. initially would not acknowledge consequences, but not clear +/- capacity. eventually as she was trying to leave she did express an understanding of consequences, and therefore did not feel it legal to restrain her. after leaving and smoking half a cigarette, she then decided to come back and allow treatment again. mother arrived (pt had called her on M[employer] OPER[employer]'s cell phone while pt was agitated and couldn't get her phone to work and vice chancellor graciously allowed her to use phone) and mother accompanied pt back to her room. will start nicotine replacement, ativan. suspect withdrawal fueling behaviors, but capacity has been off/on as far as how clear she understands her situation. should she try to leave again, would definitely want to re-eval capacity in the moment, with strong suspicion that she may not have capacity. ongoing med management for endocarditis and septic emboli. medically she appears improving
[2016-09-29] MEDS ORDERED: NICOTINE 21 MG/24 HR TDSY TD ONE (17:30)
[2016-09-29] MEDS: NICOTINE POLACRILEX 2 MG GUM MT PRN (19:27)
[2016-09-29] MEDS: CEFTRIAXONE SOD INJ 1 GM in DEXTROSE 5% ADD-VANTAGE 50ML 50 ML IV SCH (22:25)
[2016-09-30] VITALS (9 sets, daily range): BP systolic 108–160; BP diastolic 68–82; PULSE 66–139; TEMP 36.4–39.3; O2SAT 91–97
[2016-09-30] MEDS: LORAZEPAM 2 MG/ML 1 ML VIAL IV PRN ×3 (01:40→17:47)
[2016-09-30] MEDS: HYDROmorphone INJ 1 MG/ML SYR IV PRN ×7 (04:14→23:43)
[2016-09-30] MEDS: VANCOMYCIN INJ 1,000 MG in SODIUM CHLORIDE 0.9% 250ML 250 ML IV SCH (04:19)
[2016-09-30 07:30] LABS: PARTIAL THROMBOPLASTIN RATIO 1.1
[2016-09-30 07:34] LABS: HEMATOCRIT 33.2 % (37-47); MEAN CELL VOLUME 80.2 fL (80-100); MEAN CORPUSCULAR HEMOGLOBIN 27.1 pg (25-34); MEAN CORPUSCULAR HGB CONC 33.7 g/dl (32-36); MEAN PLATELET VOLUME 12.2 fL (7.4-10.4); PLATELET COUNT 121 K/uL (130-400); RED BLOOD COUNT 4.14 M/uL (4.2-5.4); WHITE BLOOD COUNT 8.62 K/uL (4.8-10.8)
[2016-09-30] MEDS: MAGNESIUM CHLORIDE 64MG DELAYED REL TAB PO SCH (07:54)
[2016-09-30] MEDS: ACETAMINOPHEN 325 MG TAB PO SCH ×4 (07:54→20:56)
[2016-09-30] MEDS: NICOTINE 21 MG/24 HR TDSY TD SCH (07:55)
[2016-09-30 07:58] LABS: BUN/CREATININE RATIO 3.5 (10-20); CALCIUM 8.1 mg/dl (8.5-10.1); CREATININE 0.65 mg/dl (0.60-1.20); MAGNESIUM 1.4 mg/dl (1.8-2.4); POTASSIUM 4.5 mmol/L (3.5-5.1)
[2016-09-30] MEDS ORDERED: SODIUM PHOSPHATE 3 MMOL/1 ML INFUSION IV STA (08:09)
[2016-09-30] MEDS ORDERED: SODIUM CHLORIDE 0.9% 1000ML 1,000 ML IV SCH (08:15)
[2016-09-30] MEDS ORDERED: SODIUM PHOSPHATE INJ 30 MMOL in SODIUM CHLORIDE 0.9% 500ML 500 ML IV SCH (08:30)
--- NOTE | 2016-09-30 08:34 | Family Medicine Progress Note ---
Progress Note Date of Service Sep 30, 2016. Subjective Needing benzodiazepines for agitation overnight and Dilaudid for chest pain relief. Fever yesterday but she feels well this morning. Having a slight cough but no shortness of breath. All Other Systems: Reviewed and Negative Medications Current Inpatient Medications Medications (Trade) Dose Ordered Sig/Cami Route Start Time Stop Time Status Last Admin Dose Admin Ioversol (Optiray 320) 100 ml UD PRN IV 09/28/16 01:15 10/02/16 01:14 Al Hydrox/Mg Hydrox/Simethicone (Maalox Max Susp) 15 ml Q4H PRN PO 09/28/16 05:00 10/28/16 04:59 Magnesium Hydroxide (Milk Of Magnesia Susp) 30 ml Q12H PRN PO 09/28/16 05:00 10/28/16 04:59 Ondansetron HCl (Zofran Inj) 4 mg Q6H PRN IV 09/28/16 05:00 10/28/16 04:59 Polyethylene 17 gm 17 gm DAILY PRN PO 09/28/16 05:00 10/28/16 04:59 Vancomycin HCl 1000 mg/Sodium Chloride 270 ml @ 125 mls/hr Q8H IV 09/28/16 12:00 11/09/16 11:59 09/30/16 04:19 125 MLS/HR Ceftriaxone Sodium/Dextrose (Rocephin Inj/ Dextrose Add-[place] 50ML) 50 ml @ 100 mls/hr Q24H IV 09/28/16 22:00 11/09/16 21:59 09/29/16 22:25 100 MLS/HR Vancomycin HCl (Consult) 1 ea UD PRN N/A 09/28/16 05:15 10/28/16 05:14 Hydroxyzine HCl (Vistaril Tab) 25 mg TID PRN PO 09/28/16 19:45 10/28/16 19:44 Magnesium Chloride (Slow-Mag Tab) 64 mg QAM PO 09/29/16 09:00 10/29/16 08:59 09/30/16 07:54 64 MG Acetaminophen (Tylenol Tab) 650 mg Q4HWA PO 09/29/16 08:00 10/29/16 07:59 09/30/16 07:54 650 MG Hydromorphone HCl (Dilaudid Inj) 1 mg Q2HWA PRN IV 09/29/16 14:00 10/13/16 13:59 09/30/16 07:51 1 MG Lorazepam (Ativan Inj) 1 mg Q2HWA PRN IV 09/29/16 14:00 10/29/16 13:59 09/30/16 01:40 1 MG Nicotine (Nicoderm Cq 21MG Patch) 1 patch QAM TD 09/30/16 09:00 10/30/16 08:59 Miscellaneous (Remove Nicoderm Patch) 1 ea HS N/A 09/29/16 21:00 10/29/16 20:59 Nicotine Polacrilex (Nicorette 2MG Gum) 1 piece PRN PRN MT 09/29/16 17:15 10/29/16 17:14 09/29/16 19:27 1 PIECE Potassium/ Phosphorus/Sodium 2 tab 2 tab QID PO 09/30/16 09:00 10/30/16 08:59 Magnesium Sulfate 1 gm/Prmx 100 ml @ 100 mls/hr 0830,0930 IV 09/30/16 08:30 09/30/16 10:29 Sodium Chloride 1,000 ml @ 125 mls/hr Q8H IV 09/30/16 08:15 10/30/16 08:14 Sodium Phosphate/ Sodium Chloride (Sodium Phosphate Inj/Nss 500ml) 510 ml @ 100 mls/hr TODAY@0830 IV 09/30/16 08:30 09/30/16 13:35 Objective Vital Signs Date Time Temp Pulse Resp B/P Pulse Ox O2 Delivery O2 Flow Rate FiO2 09/30/16 04:00 Room Air 09/30/16 03:12 37.4 123 20 122/75 95 Room Air 09/30/16 01:06 38.4 09/30/16 00:01 39.3 139 18 95 Room Air 09/30/16 00:01 Room Air 09/29/16 22:55 39.4 140 18 121/78 94 Room Air 09/29/16 20:00 Room Air 09/29/16 15:36 36.9 118 18 115/70 100 Room Air 09/29/16 12:00 94 Room Air 09/29/16 11:40 36.9 122 18 113/69 96 Room Air Physical Exam General Appearance: WD/WN, no apparent distress Neck: supple Respiratory/Chest: no respiratory distress, no accessory muscle use, + crackles (bilateral) Cardiovascular: regular rate, rhythm, no murmur Abdomen: normal bowel sounds, non tender, soft Neurologic/Psychiatric: alert, oriented x 3 Skin: normal color, warm/dry, no rash Laboratory Results 09/30/16 07:12 09/30/16 07:12 Test 09/29/16 09:45 09/30/16 07:12 Vancomycin Level Trough 18.6 mcg/ml (SEE COMMENT) Hepatitis C Antibody NEG (NEG) Red Blood Count 4.14 M/uL (4.2-5.4) Mean Corpuscular Volume 80.2 fL (80-100) Mean Corpuscular Hemoglobin 27.1 pg (25-34) Mean Corpuscular Hemoglobin Concent 33.7 g/dl (32-36) RDW Standard Deviation 42.2 fL (36.4-46.3) RDW Coefficient of Variation 14.4 % (11.5-14.5) Mean Platelet Volume 12.2 fL (7.4-10.4) Activated Partial Thromboplast Time 28.2 SECONDS (21.0-31.0) Partial Thromboplastin Ratio 1.1 Anion Gap 7.0 mmol/L (3-11) Est Creatinine Clear Calc Drug Dose 124.9 ml/min Estimated GFR () 144.0 Estimated GFR (Non- 124.3 BUN/Creatinine Ratio 3.5 (10-20) Calcium Level 8.1 mg/dl (8.5-10.1) Phosphorus Level 1.0 mg/dl (2.5-4.9) Magnesium Level 1.4 mg/dl (1.8-2.4) Assessment and Plan 25 yo with Hx IVDU admitted with chest pain, fever, chills. 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 From a pulmonary point of view she has remained stable. - BC - MSSA - treat only chest pain with Dilaudid. CAMI acetaminophen for pain/fever (noted refusal however) Altered mental status - off and on somnolent state. No focal neurology. Suspect due to withdrawal, oppositional defiant disorder. Will get MRI with - start thiamine 100mg daily although no ophthalmologic signs to suggest Wernicke's her balance is off while walking. 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 Secondary to methamphetamine use vs. opiate withdrawal. Hypophosphatemia / hypomagnesemia - Add Phosphate PO and IV replacement, asymptomatic, suspect malnutrition. Will also get a Vitamin D level. - replace Mg as required, continue slow Mg QAM Thrombocytopenia - monitor, suspect secondary to sepsis, improving Code - Full VTE Prophylaxis - will start heparin 5000 units as Plt now improved. Disposition - remain on telemetry due to recent fever. Not yet stable enough for rehabilitation. Resident Physician Supervision Note: I interviewed and examined the patient. Discussed with Dr. Begum and agree with findings and plan as documented in the note. Any exceptions or clarifications are listed here: None Documented By: Phil Webster feeling better w meds, chest pain under better control. had a fever again last night but none since. epifanio noted nad breathing unlabored fatigued appearing, no respiratory distress tricuspid valve endocarditis w septic embolic due to underlying IVDA - ongoing abx per ID, fever only @ 48hr lul presumed withdrawal - ongoing med management Resident Tracking Resident Involvement: Resident Care Provided Care Provided: Adult Hospital Medicine
[2016-09-30] MEDS: POT PHOSPHATE MONOBASIC W/ SOD TAB PO SCH ×3 (08:51→15:41)
[2016-09-30] MEDS: MAGNESIUM SULFATE 1GM / D5W 1 GM in PREMIXED IN D5W 100 ML IV SCH ×2 (08:51→10:00)
[2016-09-30] MEDS ORDERED: POT PHOSPHATE MONOBASIC W/ SOD TAB PO SCH (09:00)
[2016-09-30] MEDS ORDERED: ERGOCALCIFEROL 50,000 INTER.UNIT CAP PO ONE (10:00)
--- NOTE | 2016-09-30 11:41 | Progress Note ---
Subjective Date of Service: Sep 30, 2016. Subjective pt with MSSA IE. Repeat blood cultures pending. still with fevers, tmax 39.3. Events of yesterday noted, pt trying to leave hospital. tolerating abx. wbc improving. Vanco stopped, place on 2g ctx. follow repeat cultures. Problem List Medical Problems: (1) Fever Status: Acute (2) Polysubstance abuse Status: Acute (3) Precordial chest pain Status: Acute (4) Sepsis Status: Acute Objective Vital Signs Date Time Temp Pulse Resp B/P Pulse Ox O2 Delivery O2 Flow Rate FiO2 09/30/16 08:00 Room Air 09/30/16 08:00 37.6 130 18 121/69 94 Room Air 09/30/16 04:00 Room Air 09/30/16 03:12 37.4 123 20 122/75 95 Room Air 09/30/16 01:06 38.4 09/30/16 00:01 39.3 139 18 95 Room Air 09/30/16 00:01 Room Air 09/29/16 22:55 39.4 140 18 121/78 94 Room Air 09/29/16 20:00 Room Air 09/29/16 15:36 36.9 118 18 115/70 100 Room Air 09/29/16 12:00 94 Room Air 09/29/16 11:40 36.9 122 18 113/69 96 Room Air Laboratory Results Item Value Date Time Blood Culture - Preliminary Resulted 09/28/1699 Blood Staph Species Blood Culture - Preliminary Resulted 09/28/16 0112 Blood Staph Species Blood Culture - Final Complete 09/28/16 010 Blood Staphylococcus Aureus Blood Culture - Final Complete 09/28/16 0112 Blood Staphylococcus Aureus Last 24 Hours Test 09/30/16 07:12 09/30/16 09:55 White Blood Count 8.62 K/uL Red Blood Count 4.14 M/uL Hemoglobin 11.2 g/dL Hematocrit 33.2 % Mean Corpuscular Volume 80.2 fL Mean Corpuscular Hemoglobin 27.1 pg Mean Corpuscular Hemoglobin Concent 33.7 g/dl RDW Standard Deviation 42.2 fL RDW Coefficient of Variation 14.4 % Platelet Count 121 K/uL Mean Platelet Volume 12.2 fL Activated Partial Thromboplast Time 28.2 SECONDS Partial Thromboplastin Ratio 1.1 Sodium Level 138 mmol/L Potassium Level 4.5 mmol/L Chloride Level 107 mmol/L Carbon Dioxide Level 24 mmol/L Anion Gap 7.0 mmol/L Blood Urea Nitrogen 2 mg/dl Creatinine 0.65 mg/dl Est Creatinine Clear Calc Drug Dose 124.9 ml/min Estimated GFR () 144.0 Estimated GFR (Non- 124.3 BUN/Creatinine Ratio 3.5 Random Glucose 91 mg/dl Calcium Level 8.1 mg/dl Phosphorus Level 1.0 mg/dl Magnesium Level 1.4 mg/dl Total Creatine Kinase 21 U/L 25-Hydroxy Vitamin D Total 7.5 ng/ml Parathyroid Hormone (Intact) 44.2 pg/mL Assessment and Plan (1) Endocarditis Assessment & Plan: unclear if pt is surgical candidate. She remains with fevers which is expected with septic pulm emboli, may have fever for some time on appropriate therapy. Vanco stopped. With active IVDA she is NOT a candidate for picc line or port placement. Await decision regarding surgery, if no surgery is to be planned, she can be transitioned to outpt [facility] therapy to complete 6 week course. will continue tofollow, repeat cultures pending. (2) MSSA (methicillin susceptible Staphylococcus aureus) septicemia (3) Polysubstance abuse
[2016-09-30] MEDS ORDERED: THIAMINE HCL 100 MG TAB PO ONE (12:00)
[2016-09-30] MEDS ORDERED: CEROVITE ADV FORMULA TAB PO ONE (12:00)
[2016-09-30] MEDS: CEFTRIAXONE SOD INJ 2,000 MG in DEXTROSE 5% 50ML 50 ML IV SCH (13:35)
[2016-09-30 15:19] LABS: PHOSPHORUS 5.7 mg/dl (2.5-4.9)
[2016-09-30] MEDS ORDERED: GADAVIST IV PRN (19:00)
--- NOTE | 2016-09-30 19:01 | DIAGNOSTIC IMAGING REPORT ---
MRI OF THE BRAIN WITHOUT AND WITH IV CONTRAST CLINICAL HISTORY: AMS, infective endocarditis ?septic emboli to brain mental status change COMPARISON STUDY: No previous studies for comparison. TECHNIQUE: Utilizing a 1.5 Meme magnet and dedicated coil, multiplanar, multiecho imaging of the brain was performed pre and postcontrast administration. IV administration of 8 mL of Gadavist contrast was uneventful. FINDINGS: Diffusion-weighted images show no evidence for an acute ischemic event. Signal characteristics the cerebellar as well as cerebral hemispheres appear unremarkable. Ventricular system is midline. Sella and parasellar regions are unremarkable. Postcontrast images are considered negative for an enhancing lesion. IMPRESSION: Negative study Electronically signed by: Gabino Ness M.D. 09/30/2016 6:59 PM Dictated Date/Time: 09/30/2016 6:55 PM
[2016-09-30] MEDS: HEPARIN SOD 5000 UNIT/0.5 ML CARP SQ SCH (21:25)
[2016-10-01] MEDS: LORAZEPAM 2 MG/ML 1 ML VIAL IV PRN ×8 (01:29→23:51)
[2016-10-01] MEDS: HYDROmorphone INJ 1 MG/ML SYR IV PRN ×4 (02:03→08:58)
[2016-10-01] MEDS ORDERED: VANCOMYCIN TROUGH SCH (03:30)
[2016-10-01 03:54] VITALS: BP 119/76; PULSE 118; TEMP 37.5; O2SAT 94
[2016-10-01 07:04] LABS: BASO % 0.2 %; BASO ABS # 0.02 K/uL (0-0.2); COMPLETE YES; EOS % 5.1 %; HEMATOCRIT 33.3 % (37-47); IG% 0.8 %; LYMPH % 20.9 %; MEAN CELL VOLUME 80.6 fL (80-100); MEAN CORPUSCULAR HEMOGLOBIN 26.9 pg (25-34); MEAN CORPUSCULAR HGB CONC 33.3 g/dl (32-36); MEAN PLATELET VOLUME 11.5 fL (7.4-10.4); PLATELET COUNT 168 K/uL (130-400); RED BLOOD COUNT 4.13 M/uL (4.2-5.4); WHITE BLOOD COUNT 8.61 K/uL (4.8-10.8)
[2016-10-01 07:41] LABS: BLOOD UREA NITROGEN 3 mg/dl (7-18); BUN/CREATININE RATIO 5.9 (10-20); CARBON DIOXIDE 25 mmol/L (21-32); CHLORIDE 103 mmol/L (98-107); CREATININE 0.57 mg/dl (0.60-1.20); GLUCOSE 90 mg/dl (70-99); MAGNESIUM 1.8 mg/dl (1.8-2.4); POTASSIUM 4.2 mmol/L (3.5-5.1); SODIUM 136 mmol/L (136-145)
[2016-10-01 07:42] LABS: PHOSPHORUS 4.5 mg/dl (2.5-4.9)
[2016-10-01 07:44] VITALS: BP 138/63; PULSE 110; TEMP 37.2; O2SAT 99
--- NOTE | 2016-10-01 08:48 | Family Medicine Progress Note ---
Progress Note Date of Service Oct 01, 2016. Subjective Pt evaluation today including: conversation w/ patient, physical exam, chart review, lab review, review of studies Pain: 10 on deep inspiration Voiding: no voiding problems, no incontinence Long discussion with the patient this morning regarding use of opiates while in hospital to treat pain and reasons why it isn't a good idea to increase these. She appears to understand her condition better today and can repeat back information to me. She reports having 10/10 pain on deep inspiration and therefore only able to take shallow breaths. Reasons for requesting ativan, clonidine and dilaudid were reviewed and she was able to retain that information. I informed her of decision to try to switch her over to morphine and start weaning her down. She has not had any recurrent fevers or chills since yesterday. Constitutional: No chills, No fever Respiratory: + cough (small amount of blood coughed up yesterday) Musculoskeletal: + muscle pain (all over pain) Heme: No abnormal bleeding/bruising All Other Systems: Reviewed and Negative Medications Current Inpatient Medications Medications (Trade) Dose Ordered Sig/Cami Route Start Time Stop Time Status Last Admin Dose Admin Ioversol (Optiray 320) 100 ml UD PRN IV 09/28/16 01:15 10/02/16 01:14 Al Hydrox/Mg Hydrox/Simethicone (Maalox Max Susp) 15 ml Q4H PRN PO 09/28/16 05:00 10/28/16 04:59 Magnesium Hydroxide (Milk Of Magnesia Susp) 30 ml Q12H PRN PO 09/28/16 05:00 10/28/16 04:59 Ondansetron HCl (Zofran Inj) 4 mg Q6H PRN IV 09/28/16 05:00 10/28/16 04:59 Polyethylene (Miralax Powder Packet) 17 gm DAILY PRN PO 09/28/16 05:00 10/28/16 04:59 Hydroxyzine HCl (Vistaril Tab) 25 mg TID PRN PO 09/28/16 19:45 10/28/16 19:44 Magnesium Chloride (Slow-Mag Tab) 64 mg QAM PO 09/29/16 09:00 10/29/16 08:59 09/30/16 07:54 64 MG Acetaminophen (Tylenol Tab) 650 mg Q4HWA PO 09/29/16 08:00 10/29/16 07:59 09/30/16 20:56 650 MG Hydromorphone HCl (Dilaudid Inj) 1 mg Q2HWA PRN IV 09/29/16 14:00 10/13/16 13:59 10/01/16 06:32 1 MG Lorazepam (Ativan Inj) 1 mg Q2HWA PRN IV 09/29/16 14:00 10/29/16 13:59 10/01/16 06:58 1 MG Nicotine (Nicoderm Cq 21MG Patch) 1 patch QAM TD 09/30/16 09:00 10/30/16 08:59 Miscellaneous (Remove Nicoderm Patch) 1 ea HS N/A 09/29/16 21:00 10/29/16 20:59 Nicotine Polacrilex 1 piece 1 piece PRN PRN MT 09/29/16 17:15 10/29/16 17:14 09/29/16 19:27 1 PIECE Ceftriaxone Sodium/Dextrose (Rocephin Inj/D5 50ml) 70 ml @ 100 mls/hr Q24H IV 09/30/16 13:00 11/11/16 12:59 09/30/16 13:35 100 MLS/HR Thiamine HCl (Vitamin B-1 Tab) 100 mg QAM PO 10/01/16 09:00 10/31/16 08:59 Multivitamins/ Minerals (Multivitamin W/ Minerals Tab) 1 tab QAM PO 10/01/16 09:00 10/31/16 08:59 Cholecalciferol (Vitamin D Tab) 2,000 inter.unit QAM PO 10/01/16 09:00 10/31/16 08:59 Heparin Sodium (Porcine) (Heparin Sq 5000 Unit/0.5ml) 5,000 unit Q12 SQ 09/30/16 21:00 10/30/16 20:59 09/30/16 21:25 5,000 UNIT Gadobutrol (Gadavist) 7 mmol UD PRN IV 09/30/16 19:00 10/04/16 18:59 Ergocalciferol (Vitamin D Cap) 50,000 interunit We@0900 PO 10/07/16 09:00 11/06/16 08:59 Objective Vital Signs Date Time Temp Pulse Resp B/P Pulse Ox O2 Delivery O2 Flow Rate FiO2 10/01/16 07:44 37.2 110 18 138/63 99 10/01/16 04:00 Room Air 10/01/16 03:54 37.5 118 16 119/76 94 Room Air 10/01/16 00:00 Room Air 09/30/16 23:05 37.4 119 16 122/82 94 Room Air 09/30/16 20:45 Room Air 09/30/16 20:20 36.4 115 16 118/71 91 09/30/16 16:00 Room Air 09/30/16 15:12 36.9 106 15 113/76 95 Room Air 09/30/16 13:11 37.1 111 16 108/68 96 Room Air 09/30/16 12:00 Room Air Physical Exam General Appearance: WD/WN, + mild distress Eyes: normal inspection, PERRL, EOMI Neck: supple, no JVD Respiratory/Chest: no respiratory distress, no accessory muscle use, + rhonchi (b/l diffuse on back) Cardiovascular: no edema, no murmur, + tachycardia (regular rhythm) Extremities: no pedal edema, no calf tenderness, normal capillary refill Neurologic/Psychiatric: alert, oriented x 3 Skin: + pertinent finding (improving scab on face and arms from excoriations and picking) Laboratory Results 10/01/16 06:50 Red Blood Count 4.13, Mean Corpuscular Volume 80.6, Mean Corpuscular Hemoglobin 26.9, Mean Corpuscular Hemoglobin Concent 33.3, Mean Platelet Volume 11.5, Neutrophils (%) (Auto) 61.0, Lymphocytes (%) (Auto) 20.9, Monocytes (%) (Auto) 12.0, Eosinophils (%) (Auto) 5.1, Basophils (%) (Auto) 0.2, Neutrophils # (Auto ) 5.25, Lymphocytes # (Auto) 1.80, Monocytes # (Auto) 1.03, Eosinophils # (Auto ) 0.44, Basophils # (Auto) 0.02 10/01/16 06:50 Test 09/30/16 09:55 10/01/16 06:50 Total Creatine Kinase 21 U/L (26-192) 25-Hydroxy Vitamin D Total 7.5 ng/ml (30-100) Parathyroid Hormone (Intact) 44.2 pg/mL (11.1-79.5) White Blood Count 8.61 K/uL (4.8-10.8) Red Blood Count 4.13 M/uL (4.2-5.4) Hemoglobin 11.1 g/dL (12.0-16.0) Hematocrit 33.3 % (37-47) Mean Corpuscular Volume 80.6 fL (80-100) Mean Corpuscular Hemoglobin 26.9 pg (25-34) Mean Corpuscular Hemoglobin Concent 33.3 g/dl (32-36) Platelet Count 168 K/uL (130-400) Mean Platelet Volume 11.5 fL (7.4-10.4) Neutrophils (%) (Auto) 61.0 % Lymphocytes (%) (Auto) 20.9 % Monocytes (%) (Auto) 12.0 % Eosinophils (%) (Auto) 5.1 % Basophils (%) (Auto) 0.2 % Neutrophils # (Auto) 5.25 K/uL (1.4-6.5) Lymphocytes # (Auto) 1.80 K/uL (1.2-3.4) Monocytes # (Auto) 1.03 K/uL (0.11-0.59) Eosinophils # (Auto) 0.44 K/uL (0-0.5) Basophils # (Auto) 0.02 K/uL (0-0.2) RDW Standard Deviation 43.2 fL (36.4-46.3) RDW Coefficient of Variation 14.7 % (11.5-14.5) Immature Granulocyte % (Auto) 0.8 % Immature Granulocyte # (Auto) 0.07 K/uL (0.00-0.02) Anion Gap 8.0 mmol/L (3-11) Est Creatinine Clear Calc Drug Dose 142.5 ml/min Estimated GFR () > 150.0 Estimated GFR (Non- 129.8 BUN/Creatinine Ratio 5.9 (10-20) Calcium Level 8.0 mg/dl (8.5-10.1) Phosphorus Level 4.5 mg/dl (2.5-4.9) Magnesium Level 1.8 mg/dl (1.8-2.4) Assessment and Plan 25 yo with Hx IVDU admitted with chest pain, fever, chills. 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 From a pulmonary point of view she has remained stable but has coarse rhonchi b/l - BC - MSSA - treat only chest pain with Dilaudid (switch to morphine). 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 Secondary to methamphetamine use vs. opiate withdrawal. Hypophosphatemia / hypomagnesemia - Vitamin D replacement - supplement replacements will adjust as required Thrombocytopenia - monitor, suspect secondary to sepsis, improving Code - Full VTE Prophylaxis - continue heparin 5000 units SQ BID Disposition - remain on telemetry Resident Physician Supervision Note: I interviewed and examined the patient. Discussed with Dr. Begum and agree with findings and plan as documented in the note. Any exceptions or clarifications are listed here: None Documented By: Phil Eleanor d/w mother in pt's presence and then with pt's alllowing feeling about the same but no further fevers. despite case managmenet extensive efforts (see ntoes and d/w case management as well) pt was asking what we were talking about in regards to rehab as though she had not had this mentioned before. vitals noted, anxious but nad. actively bargaining for narcotics, allwoing benzos and refusing treatment besides those for her sx. is allowing abx. skin lesions stable to clearing. no respiratory distress tricuspid endocarditis w sepsis and septic pulmonary emboli - now afebrile for ~ 36hrs, reassuring. hopefully abx treatment alone will suffice. continue drug abuse/withdrawal - more clear, still anxious/bargaining but appearing less delirious ?how much related to drug withdrawal and how much related to sepsis - improving. agree w careful down-titration of meds (still w goal of adequate symptom control, however). dispo - hopefully will be amenable to rehab Resident Tracking Resident Involvement: Resident Care Provided Care Provided: Adult Hospital Medicine
[2016-10-01] MEDS: ACETAMINOPHEN 325 MG TAB PO SCH ×4 (08:58→20:07)
[2016-10-01] MEDS ORDERED: ERGOCALCIFEROL 50,000 INTER.UNIT CAP PO SCH (09:00)
[2016-10-01] MEDS: HEPARIN SOD 5000 UNIT/0.5 ML CARP SQ SCH ×2 (09:00→20:27)
[2016-10-01] MEDS: NICOTINE 21 MG/24 HR TDSY TD SCH (09:30)
[2016-10-01] MEDS: CLONIDINE HCL 0.1 MG TAB PO SCH ×3 (10:00→20:08)
[2016-10-01] MEDS: MoRPHine SULFATE 2 MG/ML CARP IV PRN ×5 (10:57→23:51)
[2016-10-01] MEDS: THIAMINE HCL 100 MG TAB PO SCH (10:59)
[2016-10-01] MEDS: MAGNESIUM CHLORIDE 64MG DELAYED REL TAB PO SCH (10:59)
[2016-10-01] MEDS: CHOLECALCIFEROL 1000 INTER.UNIT TAB PO SCH (10:59)
[2016-10-01] MEDS: CEROVITE ADV FORMULA TAB PO SCH (11:00)
[2016-10-01 11:19] VITALS: BP 125/61; PULSE 112; TEMP 37; O2SAT 98
[2016-10-01] MEDS: HYDROmorphone HCL 2 MG TAB PO PRN ×3 (13:26→20:05)
[2016-10-01] MEDS: CEFTRIAXONE SOD INJ 2,000 MG in DEXTROSE 5% 50ML 50 ML IV SCH (13:30)
[2016-10-01 15:34] VITALS: BP 121/74; PULSE 121; TEMP 37.5; O2SAT 94
[2016-10-01 19:42] VITALS: BP 121/82; PULSE 125; TEMP 36.8; O2SAT 95
[2016-10-01 23:39] VITALS: BP 126/81; PULSE 131; TEMP 39.3; O2SAT 92
[2016-10-02] VITALS (9 sets, daily range): BP systolic 81–117; BP diastolic 44–75; PULSE 87–131; TEMP 36.5–37.3; O2SAT 94–99
[2016-10-02] MEDS ORDERED: CLINDAMYCIN IV 900 MG in DEXTROSE 5% ADD-VANTAGE 100ML 100 ML IV SCH (00:30)
[2016-10-02] MEDS: KETOROLAC TROMETHAMINE 30 MG/ML VIAL IV PRN ×2 (01:20→12:08)
[2016-10-02] MEDS: MoRPHine SULFATE 2 MG/ML CARP IV PRN (03:57)
[2016-10-02] MEDS: LORAZEPAM 2 MG/ML 1 ML VIAL IV PRN ×4 (03:58→18:52)
[2016-10-02 06:38] LABS: BASO % 0.6 %; BASO ABS # 0.04 K/uL (0-0.2); COMPLETE YES; EOS % 4.5 %; HEMATOCRIT 33.9 % (37-47); IG% 2.3 %; LYMPH % 13.2 %; LYMPH ABS # 0.93 K/uL (1.2-3.4); MEAN CELL VOLUME 80.5 fL (80-100); MEAN CORPUSCULAR HEMOGLOBIN 26.4 pg (25-34); MEAN CORPUSCULAR HGB CONC 32.7 g/dl (32-36); MEAN PLATELET VOLUME 10.4 fL (7.4-10.4); NEUT % 55.4 %; PLATELET COUNT 192 K/uL (130-400); RED BLOOD COUNT 4.21 M/uL (4.2-5.4); WHITE BLOOD COUNT 7.07 K/uL (4.8-10.8)
[2016-10-02] MEDS: HYDROmorphone HCL 2 MG TAB PO PRN ×3 (06:47→22:55)
[2016-10-02 08:39] LABS: PARTIAL THROMBOPLASTIN RATIO 1.3
[2016-10-02] MEDS: CLONIDINE HCL 0.1 MG TAB PO SCH ×3 (09:00→19:45)
[2016-10-02] MEDS: HEPARIN SOD 5000 UNIT/0.5 ML CARP SQ SCH ×2 (09:00→21:11)
[2016-10-02 09:06] LABS: BUN/CREATININE RATIO 10.3 (10-20); C-REACTIVE PROTEIN 16.9 mg/dl (0-0.29); CREATININE 0.66 mg/dl (0.60-1.20); MAGNESIUM 1.7 mg/dl (1.8-2.4); POTASSIUM 4.3 mmol/L (3.5-5.1)
[2016-10-02 09:18] LABS: ALB/GLOB RATIO 0.5 (0.9-2); CALCIUM 8.5 mg/dl (8.5-10.1); PHOSPHORUS 2.7 mg/dl (2.5-4.9)
[2016-10-02] MEDS ORDERED: HYDROmorphone HCL 2 MG TAB PO PRN (10:00)
--- NOTE | 2016-10-02 10:10 | Family Medicine Progress Note ---
Progress Note Date of Service Oct 02, 2016. Subjective Pt evaluation today including: conversation w/ patient, physical exam, chart review, lab review, review of studies, conversation w/ franchise business consultant (CT Surgery ( [facility])), review of inpatient medication list Discussed need to discuss case with CT surgery this morning due to additional temperature overnight. She was able to understand this but is fixated on having an increased dose of Dilaudid. She is resistant to trying additional medications to try and reduce her dose of opiates and feels she is not addicted to opiates and her current presentation is due to methamphetamines only. She wants to try increasing her dose of Dilaudid for a few days to get rid of her pain completely and then start trying to cut down. When we discussed how she wasn't able to participate with inpatient rehab discussions yesterday she tells me it is because she had too much Ativan. We discussed alternatives to Ativan which she is reluctant to take including clonidine and hydroxyzine because she tells me she . Although she has very legitimate reasons for pain for which we can continue Dilaudid but at reducing doses and oral only she appears to have very little insight as multiple providers at different times have discussed the reasons for not increases the opiates with her yet we have the same conversation each day about how she doesn't feel like we are listening to her and requests more Dilaudid. All Other Systems: Reviewed and Negative Medications Current Inpatient Medications Medications (Trade) Dose Ordered Sig/Genny Route Start Time Stop Time Status Last Admin Dose Admin Al Hydrox/Mg Hydrox/Simethicone (Maalox Max Susp) 15 ml Q4H PRN PO 09/28/16 05:00 10/28/16 04:59 Magnesium Hydroxide (Milk Of Magnesia Susp) 30 ml Q12H PRN PO 09/28/16 05:00 10/28/16 04:59 Ondansetron HCl (Zofran Inj) 4 mg Q6H PRN IV 09/28/16 05:00 10/28/16 04:59 Polyethylene (Miralax Powder Packet) 17 gm DAILY PRN PO 09/28/16 05:00 10/28/16 04:59 Hydroxyzine HCl (Vistaril Tab) 25 mg TID PRN PO 09/28/16 19:45 10/28/16 19:44 Magnesium Chloride (Slow-Mag Tab) 64 mg QAM PO 09/29/16 09:00 10/29/16 08:59 10/01/16 10:59 64 MG Acetaminophen (Tylenol Tab) 650 mg Q4HWA PO 09/29/16 08:00 10/29/16 07:59 10/01/16 20:07 650 MG Lorazepam (Ativan Inj) 1 mg Q2HWA PRN IV 09/29/16 14:00 10/29/16 13:59 10/02/16 03:58 1 MG Nicotine (Nicoderm Cq 21MG Patch) 1 patch QAM TD 09/30/16 09:00 10/30/16 08:59 Miscellaneous (Remove Nicoderm Patch) 1 ea HS N/A 09/29/16 21:00 10/29/16 20:59 Nicotine Polacrilex 1 piece 1 piece PRN PRN MT 09/29/16 17:15 10/29/16 17:14 09/29/16 19:27 1 PIECE Ceftriaxone Sodium/Dextrose (Rocephin Inj/D5 50ml) 70 ml @ 100 mls/hr Q24H IV 09/30/16 13:00 11/11/16 12:59 10/01/16 13:30 100 MLS/HR Thiamine HCl (Vitamin B-1 Tab) 100 mg QAM PO 10/01/16 09:00 10/31/16 08:59 10/01/16 10:59 100 MG Multivitamins/ Minerals (Multivitamin W/ Minerals Tab) 1 tab QAM PO 10/01/16 09:00 10/31/16 08:59 10/01/16 11:00 1 TAB Cholecalciferol (Vitamin D Tab) 2,000 inter.unit QAM PO 10/01/16 09:00 10/31/16 08:59 10/01/16 10:59 2,000 INTER.UNIT Heparin Sodium (Porcine) (Heparin Sq 5000 Unit/0.5ml) 5,000 unit Q12 SQ 09/30/16 21:00 10/30/16 20:59 09/30/16 21:25 5,000 UNIT Gadobutrol (Gadavist) 7 mmol UD PRN IV 09/30/16 19:00 10/04/16 18:59 Ergocalciferol (Vitamin D Cap) 50,000 interunit We@0900 PO 10/07/16 09:00 11/06/16 08:59 Clonidine HCl (Catapres Tab) 0.1 mg TID PO 10/01/16 10:00 10/31/16 09:59 10/01/16 20:08 0.1 MG Morphine Sulfate 2 mg 2 mg Q2HWA PRN IV 10/01/16 09:00 10/15/16 08:59 10/02/16 03:57 2 MG Clindamycin Phosphate/Dextrose (Cleocin Iv/ Dextrose Add-[place] 100ML) 106 ml @ 100 mls/hr Q8H IV 10/02/16 00:30 11/13/16 00:29 10/02/16 01:20 100 MLS/HR Ketorolac Tromethamine (Toradol Inj) 30 mg Q6H PRN IV 10/02/16 00:45 10/07/16 00:44 10/02/16 01:20 30 MG Hydromorphone HCl (Dilaudid Tab) 2 mg Q2HWA PRN PO 10/02/16 10:00 10/16/16 09:59 Objective Vital Signs Date Time Temp Pulse Resp B/P Pulse Ox O2 Delivery O2 Flow Rate FiO2 10/02/16 07:18 37.1 131 20 117/71 98 Room Air 10/02/16 04:00 Room Air 10/02/16 03:47 36.8 106 20 96/59 94 Room Air 10/02/16 02:31 37.3 10/02/16 00:00 Room Air 10/01/16 23:39 39.3 131 20 126/81 92 Room Air 10/01/16 20:00 Room Air 10/01/16 19:42 36.8 125 18 121/82 95 Room Air 10/01/16 16:00 Room Air 10/01/16 15:34 37.5 121 20 121/74 94 Room Air 10/01/16 12:00 Room Air 10/01/16 11:19 37.0 112 18 125/61 98 Physical Exam General Appearance: + mild distress (mild diaphoresis, annoyed as she feels doctors aren't listening to her) Respiratory/Chest: + decreased breath sounds (with reduced breathing effort due to pain), + crackles (b/l throughout back) Cardiovascular: no murmur, + tachycardia Abdomen: normal bowel sounds, soft, + tenderness (LLQ with not duarding or rebound tenderness) Extremities: no pedal edema, no calf tenderness, normal capillary refill Neurologic/Psychiatric: no motor/sensory deficits, alert, oriented x 3 Skin: normal color, warm/dry, no rash Laboratory Results 10/02/16 06:30 Red Blood Count 4.21, Mean Corpuscular Volume 80.5, Mean Corpuscular Hemoglobin 26.4, Mean Corpuscular Hemoglobin Concent 32.7, Mean Platelet Volume 10.4, Neutrophils (%) (Auto) 55.4, Lymphocytes (%) (Auto) 13.2, Monocytes (%) (Auto) 24.0, Eosinophils (%) (Auto) 4.5, Basophils (%) (Auto) 0.6, Neutrophils # (Auto ) 3.92, Lymphocytes # (Auto) 0.93, Monocytes # (Auto) 1.70, Eosinophils # (Auto ) 0.32, Basophils # (Auto) 0.04 10/02/16 08:19 Test 10/02/16 06:30 10/02/16 08:19 White Blood Count 7.07 K/uL (4.8-10.8) Red Blood Count 4.21 M/uL (4.2-5.4) Hemoglobin 11.1 g/dL (12.0-16.0) Hematocrit 33.9 % (37-47) Mean Corpuscular Volume 80.5 fL (80-100) Mean Corpuscular Hemoglobin 26.4 pg (25-34) Mean Corpuscular Hemoglobin Concent 32.7 g/dl (32-36) Platelet Count 192 K/uL (130-400) Mean Platelet Volume 10.4 fL (7.4-10.4) Neutrophils (%) (Auto) 55.4 % Lymphocytes (%) (Auto) 13.2 % Monocytes (%) (Auto) 24.0 % Eosinophils (%) (Auto) 4.5 % Basophils (%) (Auto) 0.6 % Neutrophils # (Auto) 3.92 K/uL (1.4-6.5) Lymphocytes # (Auto) 0.93 K/uL (1.2-3.4) Monocytes # (Auto) 1.70 K/uL (0.11-0.59) Eosinophils # (Auto) 0.32 K/uL (0-0.5) Basophils # (Auto) 0.04 K/uL (0-0.2) RDW Standard Deviation 43.2 fL (36.4-46.3) RDW Coefficient of Variation 14.7 % (11.5-14.5) Immature Granulocyte % (Auto) 2.3 % Immature Granulocyte # (Auto) 0.16 K/uL (0.00-0.02) Prothrombin Time 11.0 SECONDS (9.0-12.0) Prothromb Time International Ratio 1.0 (0.9-1.1) Activated Partial Thromboplast Time 32.7 SECONDS (21.0-31.0) Partial Thromboplastin Ratio 1.3 Anion Gap 7.0 mmol/L (3-11) Est Creatinine Clear Calc Drug Dose 123.0 ml/min Estimated GFR () 143.3 Estimated GFR (Non- 123.6 BUN/Creatinine Ratio 10.3 (10-20) Calcium Level 8.5 mg/dl (8.5-10.1) Phosphorus Level 2.7 mg/dl (2.5-4.9) Magnesium Level 1.7 mg/dl (1.8-2.4) Total Bilirubin 0.3 mg/dl (0.2-1) Aspartate Amino Transf (AST/SGOT) 25 U/L (15-37) Alanine Aminotransferase (ALT/SGPT) 17 U/L (12-78) Alkaline Phosphatase 81 U/L (45-117) C-Reactive Protein 16.90 mg/dl (0-0.29) Total Protein 6.3 gm/dl (6.4-8.2) Albumin 2.1 gm/dl (3.4-5.0) Globulin 4.2 gm/dl (2.5-4.0) Albumin/Globulin Ratio 0.5 (0.9-2) Assessment and Plan 25 yo with Hx IVDU admitted with chest pain, fever, chills. 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 GENNY acetaminophen and toradol. - CXR to assess for pleural effusions given reduced breath sounds and reduced inspiratory effort Abdominal pain/cramps - suspect opiate withdrawal or constipation from opiate use - KUB XR - baclofen PRN Altered mental status - most likely secondary to opiate and benzodiazepines given - MRI showed no acute pathology - Continue thiamine supplementation - stop morphine, use Dilaudid PO only Multiple substance abuse with opiate withdrawal - monitor for opiate withdrawal. 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 Secondary to methamphetamine use. Hypophosphatemia / hypomagnesemia - Vitamin D replacement - supplement replacements will adjust as required Code - Full VTE Prophylaxis - continue heparin 5000 units SQ BID, low risk given age and mobility Disposition - remain on telemetry Resident Physician Supervision Note: I interviewed and examined the patient. Discussed with Dr. Begum and agree with findings and plan as documented in the note. Any exceptions or clarifications are listed here: None Documented By: Phil Webster recurrent fever - discussed case with floral cardiothoracic surgery - since no CHF sx, no significant valvular dysfunction, not a surgical candidate at this time. noted that if CHF/valve disease became apparent would warrant eval, otherwise only really if long-standingly refractory to med treatment (ongoing persistent fevers, persistent bacteremia) bargaining for pain meds today- appearing comfortable but asking for return to IV dilauded. discussed toradol to augment dilauded since IV was cuasing so much sedation and PO is not, she refused to even give trial. no other acute complaints. otherwise as above vitals noted, no apparent distress, does not appear in pain currently, breathing unlabored no accessory muscle use. no pallor or icterus staph aureus tricuspid endocarditis w sepsis and septic emboli present on admission - improving overall. d/w CTS - no need for formal surgical eval at this time. continue abx, continue to follow drug abuse/withdrawal - complicates her care. continue to manage carefully, knowing that the septic emboli will cause real pain (therefore a need to manage aggressively) but also that drug abuse hx likely will raise increase in asking/ bargaining/etc. treat aggressively when appearing uncomfortable, manage anxiety /withdrawal w benzos aggressively, but also follow closely otherwise otherwise as above. DVT proph heparin SQ Resident Tracking Resident Involvement: Resident Care Provided Care Provided: Adult Hospital Medicine
[2016-10-02 10:39] LABS: COD UR NEGATIVE NG/ML (CUTOFF=50); HYDROCOD UR NEGATIVE NG/ML (CUTOFF=50); HYDROMOR UR NEGATIVE NG/ML (CUTOFF=50); MORPHINE UR NEGATIVE NG/ML (CUTOFF=50); NORHYDROCODONE CONF UR NEGATIVE NG/ML (CUTOFF=50); OXYMORPH UR NEGATIVE NG/ML (CUTOFF=50)
--- NOTE | 2016-10-02 10:58 | DIAGNOSTIC IMAGING REPORT ---
CHEST 2 VIEWS ROUTINE HISTORY: chest pain, shortness of breath COMPARISON: Chest CTA 09/28/2016. FINDINGS: The heart is normal in size. Small bilateral pleural effusions and bibasilar airspace opacities have progressed. A few scattered cavitary nodules are again noted but better present on the prior chest CT., Nodule within the right upper lobe measures 13 mm. No pneumothorax. IMPRESSION: 1. Interval progression of the small bilateral pleural effusions and bibasilar airspace opacities. 2. A few scattered small cavitary nodules are again noted. This could represent septic pulmonary emboli, an atypical infectious process such as tuberculosis, or systemic inflammatory disease. Metastatic disease is considered less likely in a patient of this age. Electronically signed by: Arnie Encarnacion M.D. 10/02/2016 10:56 AM Dictated Date/Time: 10/02/2016 10:53 AM
--- NOTE | 2016-10-02 11:21 | Progress Note ---
Subjective Date of Service: Oct 02, 2016. Subjective pt with cxr this am, septic emboli noted. One isolated fever last night, afebrile this morning. Repeat blood cultures from 09/29 remain no growth. tolerating abx. placed on clinda last pm, remains on ctx. Disposition being formulated, ? rehab. pt deciding. no overnight events. Problem List Medical Problems: (1) Fever Status: Acute (2) Polysubstance abuse Status: Acute (3) Precordial chest pain Status: Acute (4) Sepsis Status: Acute Objective Vital Signs Date Time Temp Pulse Resp B/P Pulse Ox O2 Delivery O2 Flow Rate FiO2 10/02/16 10:54 36.9 91 20 81/44 95 Room Air 10/02/16 07:18 37.1 131 20 117/71 98 Room Air 10/02/16 04:00 Room Air 10/02/16 03:47 36.8 106 20 96/59 94 Room Air 10/02/16 02:31 37.3 10/02/16 00:00 Room Air 10/01/16 23:39 39.3 131 20 126/81 92 Room Air 10/01/16 20:00 Room Air 10/01/16 19:42 36.8 125 18 121/82 95 Room Air 10/01/16 16:00 Room Air 10/01/16 15:34 37.5 121 20 121/74 94 Room Air 10/01/16 12:00 Room Air 10/01/16 11:19 37.0 112 18 125/61 98 Laboratory Results Item Value Date Time Blood Culture - Final Complete 09/28/16 0100 Blood Staphylococcus Aureus Blood Culture - Final Complete 09/28/16 0112 Blood Staphylococcus Aureus Blood Culture - Preliminary Resulted 09/29/16 0945 Blood NO GROWTH TO DATE. Blood Culture - Preliminary Resulted 09/29/16 1000 Blood NO GROWTH TO DATE. Last 24 Hours Test 10/02/16 06:30 10/02/16 08:19 White Blood Count 7.07 K/uL Red Blood Count 4.21 M/uL Hemoglobin 11.1 g/dL Hematocrit 33.9 % Mean Corpuscular Volume 80.5 fL Mean Corpuscular Hemoglobin 26.4 pg Mean Corpuscular Hemoglobin Concent 32.7 g/dl Platelet Count 192 K/uL Mean Platelet Volume 10.4 fL Neutrophils (%) (Auto) 55.4 % Lymphocytes (%) (Auto) 13.2 % Monocytes (%) (Auto) 24.0 % Eosinophils (%) (Auto) 4.5 % Basophils (%) (Auto) 0.6 % Neutrophils # (Auto) 3.92 K/uL Lymphocytes # (Auto) 0.93 K/uL Monocytes # (Auto) 1.70 K/uL Eosinophils # (Auto) 0.32 K/uL Basophils # (Auto) 0.04 K/uL RDW Standard Deviation 43.2 fL RDW Coefficient of Variation 14.7 % Immature Granulocyte % (Auto) 2.3 % Immature Granulocyte # (Auto) 0.16 K/uL Prothrombin Time 11.0 SECONDS Prothromb Time International Ratio 1.0 Activated Partial Thromboplast Time 32.7 SECONDS Partial Thromboplastin Ratio 1.3 Sodium Level 132 mmol/L Potassium Level 4.3 mmol/L Chloride Level 100 mmol/L Carbon Dioxide Level 25 mmol/L Anion Gap 7.0 mmol/L Blood Urea Nitrogen 7 mg/dl Creatinine 0.66 mg/dl Est Creatinine Clear Calc Drug Dose 123.0 ml/min Estimated GFR () 143.3 Estimated GFR (Non- 123.6 BUN/Creatinine Ratio 10.3 Random Glucose 105 mg/dl Calcium Level 8.5 mg/dl Phosphorus Level 2.7 mg/dl Magnesium Level 1.7 mg/dl Total Bilirubin 0.3 mg/dl Aspartate Amino Transf (AST/SGOT) 25 U/L Alanine Aminotransferase (ALT/SGPT) 17 U/L Alkaline Phosphatase 81 U/L C-Reactive Protein 16.90 mg/dl Total Protein 6.3 gm/dl Albumin 2.1 gm/dl Globulin 4.2 gm/dl Albumin/Globulin Ratio 0.5 Assessment and Plan (1) Endocarditis Assessment & Plan: continue ctx for now. suspect ongoing fever is related to septic emboli, curve overall improving. will stop clinda. discharge planning to be determined. she in not a candidate for picc line. She will need ongoing therapy with IV abx for MSSA sepsis and TV IE, however, with active drug use I would strongly suggest avoiding picc placement in this patient, even if she is to be transferred to rehab facility. She has left the hospital to smoke during this admission and I am concerned for misuse of picc line, even if she is d/c to inpatient rehab facility. I would suggest continuing with IV CTX and then upon d/c she can undergo remainder of treatment with IV Dalvance with weekly infusions at [facility] to complete course. Initial dose of 1000mg then 500mg weekly after. Last dose 11/10. Would need weekly cbc, cmp. No plans for surgical intervention at this time. (2) MSSA (methicillin susceptible Staphylococcus aureus) septicemia (3) Polysubstance abuse
--- NOTE | 2016-10-02 11:44 | DIAGNOSTIC IMAGING REPORT ---
KUB CLINICAL HISTORY: No BM or flatus ?obstruction ?constipation COMPARISON STUDY: No previous studies for comparison. FINDINGS: There is no pathologic bowel dilatation. There is mild to moderate stool within the colon. There are no abnormal abdominal calcifications. There are small bilateral pleural effusions with associated left basilar airspace opacities. IMPRESSION: 1. Small bilateral pleural effusions with left basilar airspace opacities 2. No evidence of pathologic bowel dilatation 3. Mild to moderate stool within the colon Electronically signed by: Rafael Cardona M.D. 10/02/2016 11:41 AM Dictated Date/Time: 10/02/2016 11:40 AM
[2016-10-02] MEDS: THIAMINE HCL 100 MG TAB PO SCH (11:52)
[2016-10-02] MEDS: NICOTINE 21 MG/24 HR TDSY TD SCH (11:52)
[2016-10-02] MEDS: ACETAMINOPHEN 325 MG TAB PO SCH ×4 (11:53→21:08)
[2016-10-02] MEDS: CHOLECALCIFEROL 1000 INTER.UNIT TAB PO SCH (11:53)
[2016-10-02] MEDS: CEROVITE ADV FORMULA TAB PO SCH (11:53)
[2016-10-02] MEDS: MAGNESIUM CHLORIDE 64MG DELAYED REL TAB PO SCH (11:53)
--- NOTE | 2016-10-02 12:03 | Psych Management Progress Note ---
Psychiatry Miscellaneous Date of Service: Oct 02, 2016. Chart reviewed. Case discussed with liaison nurse. I personally participated in the medical decision making outlined in the initial consult by MARTA Zhou. Patient former outpatient of [facility] years ago as a teen and was discharged AMA so I didn't examine the patient today as may be triggering for her, has already been tachy despite clonidine. She was somewhat sedated per liaison due to pain medication. If patient is insistent on additional medication for anxiety would recommend prn Vistaril in place of Ativan due to combo with pain meds or rx of Neurontin, assuming not too sedated.
[2016-10-02] MEDS ORDERED: DOCUSATE SODIUM 100 MG CAP PO ONE (12:30)
[2016-10-02] MEDS ORDERED: POLYETHYLENE (MIRALAX) 17 GM PACK PO ONE (12:45)
[2016-10-02] MEDS: CEFTRIAXONE SOD INJ 2,000 MG in DEXTROSE 5% 50ML 50 ML IV SCH (13:43)
[2016-10-02] MEDS: hydrOXYzine HCL 25 MG TAB PO SCH ×3 (13:44→21:10)
[2016-10-02] MEDS: KETOROLAC TROMETHAMINE 30 MG/ML VIAL IV SCH (19:44)
[2016-10-02] MEDS: LORAZEPAM 1 MG TAB PO PRN (21:08)
[2016-10-02] MEDS: GABAPENTIN 300 MG CAP PO SCH (21:09)
[2016-10-03] MEDS: KETOROLAC TROMETHAMINE 30 MG/ML VIAL IV SCH ×4 (00:04→19:24)
[2016-10-03] MEDS: LORAZEPAM 1 MG TAB PO PRN ×3 (00:05→21:40)
[2016-10-03 07:22] VITALS: BP 95/62; PULSE 82; TEMP 36.7; O2SAT 94
[2016-10-03 08:05] LABS: HEMATOCRIT 30.6 % (37-47); MEAN CELL VOLUME 82.3 fL (80-100); MEAN CORPUSCULAR HEMOGLOBIN 26.3 pg (25-34); MEAN PLATELET VOLUME 10.9 fL (7.4-10.4); PLATELET COUNT 217 K/uL (130-400); RED BLOOD COUNT 3.72 M/uL (4.2-5.4); WHITE BLOOD COUNT 4.72 K/uL (4.8-10.8)
[2016-10-03] MEDS: GABAPENTIN 300 MG CAP PO SCH ×5 (08:14→19:25)
[2016-10-03] MEDS: HYDROmorphone HCL 2 MG TAB PO PRN ×3 (08:14→16:47)
[2016-10-03] MEDS: hydrOXYzine HCL 25 MG TAB PO SCH ×5 (08:15→22:49)
[2016-10-03] MEDS: NICOTINE 21 MG/24 HR TDSY TD SCH (08:15)
[2016-10-03] MEDS: CEROVITE ADV FORMULA TAB PO SCH (08:16)
[2016-10-03] MEDS: THIAMINE HCL 100 MG TAB PO SCH (08:16)
[2016-10-03] MEDS: CLONIDINE HCL 0.1 MG TAB PO SCH ×4 (08:17→14:07)
[2016-10-03] MEDS: ACETAMINOPHEN 325 MG TAB PO SCH ×4 (08:18→19:26)
[2016-10-03] MEDS: MAGNESIUM CHLORIDE 64MG DELAYED REL TAB PO SCH ×2 (08:18→19:25)
[2016-10-03] MEDS: CHOLECALCIFEROL 1000 INTER.UNIT TAB PO SCH (08:18)
[2016-10-03] MEDS: HEPARIN SOD 5000 UNIT/0.5 ML CARP SQ SCH ×2 (08:20→21:42)
--- NOTE | 2016-10-03 11:57 | Psychiatric Progress Notes ---
Psychiatric Progress Note Date of Service Oct 03, 2016. Notes ID: Patient seen with liaison nurse, interim progress reviewed. CC: "I need IV Ativan" HPI: patient more alert today, recognized me from previous course of treatment, multiple complaints about medications--feels IV ativan works better than PO, discussed allowing to dissolve under tongue but also my preference would be that she not receive any ativan and/or at decreased frequency. Recommend that she address with primary team. She threatens that without it she will "freak out". Reviewed my preference would be to increase Neurontin. She asked about resuming her previous medications of Vyvanse and Wellbutrin, immediately recognizing that Vyvanse would not be given in hospital. ROS: pain complaints, denies skin picking MSE: alert, superficially cooperate, affect calm, thoughts organized, no SI/HI/ hauser, anxious when med seeking. Imp: hx of ADHD, bipolar, personality disorder, legal issues and polysubstance abuse Plan: resume Wellbutrin at lower dose of 150 mg SR and continue to recommend rehab
[2016-10-03 12:34] VITALS: BP 107/74
[2016-10-03] MEDS: CEFTRIAXONE SOD INJ 2,000 MG in DEXTROSE 5% 50ML 50 ML IV SCH (12:53)
[2016-10-03 13:40] VITALS: PULSE 99
--- NOTE | 2016-10-03 14:29 | Family Medicine Progress Note ---
Progress Note Date of Service Oct 03, 2016. Subjective Pt evaluation today including: conversation w/ patient, physical exam, chart review, lab review, conversation w/ investigations consultant, review of inpatient medication list PO Intake: minimal Voiding: no voiding problems Patient with no acute events overnight. She did complain of sweats yesterday evening but had no recorded fever. She still has a cough that she says is intermittent. She denies any chest pain, shortness of breath, abdominal pain, nausea or vomiting. She has no had a bowel movement in 4 days and is drinking fluids but does not have much of an appetite. All Other Systems: Reviewed and Negative Medications Current Inpatient Medications Medications (Trade) Dose Ordered Sig/Cami Route Start Time Stop Time Status Last Admin Dose Admin Al Hydrox/Mg Hydrox/Simethicone (Maalox Max Susp) 15 ml Q4H PRN PO 09/28/16 05:00 10/28/16 04:59 Magnesium Hydroxide (Milk Of Magnesia Susp) 30 ml Q12H PRN PO 09/28/16 05:00 10/28/16 04:59 Ondansetron HCl (Zofran Inj) 4 mg Q6H PRN IV 09/28/16 05:00 10/28/16 04:59 Polyethylene (Miralax Powder Packet) 17 gm DAILY PRN PO 09/28/16 05:00 10/28/16 04:59 Acetaminophen (Tylenol Tab) 650 mg Q4HWA PO 09/29/16 08:00 10/29/16 07:59 10/03/16 12:17 650 MG Nicotine (Nicoderm Cq 21MG Patch) 1 patch QAM TD 09/30/16 09:00 10/30/16 08:59 10/03/16 08:15 1 PATCH Miscellaneous (Remove Nicoderm Patch) 1 ea HS N/A 09/29/16 21:00 10/29/16 20:59 10/02/16 21:00 1 EA Nicotine Polacrilex 1 piece 1 piece PRN PRN MT 09/29/16 17:15 10/29/16 17:14 09/29/16 19:27 1 PIECE Ceftriaxone Sodium/Dextrose (Rocephin Inj/D5 50ml) 70 ml @ 100 mls/hr Q24H IV 09/30/16 13:00 11/11/16 12:59 10/03/16 12:53 100 MLS/HR Thiamine HCl (Vitamin B-1 Tab) 100 mg QAM PO 10/01/16 09:00 10/31/16 08:59 10/03/16 08:16 100 MG Multivitamins/ Minerals (Multivitamin W/ Minerals Tab) 1 tab QAM PO 10/01/16 09:00 10/31/16 08:59 10/03/16 08:16 1 TAB Cholecalciferol (Vitamin D Tab) 2,000 inter.unit QAM PO 10/01/16 09:00 10/31/16 08:59 10/03/16 08:18 2,000 INTER.UNIT Heparin Sodium (Porcine) (Heparin Sq 5000 Unit/0.5ml) 5,000 unit Q12 SQ 09/30/16 21:00 10/30/16 20:59 10/03/16 08:20 5,000 UNIT Gadobutrol (Gadavist) 7 mmol UD PRN IV 09/30/16 19:00 10/04/16 18:59 Ergocalciferol (Vitamin D Cap) 50,000 interunit We@0900 PO 10/07/16 09:00 11/06/16 08:59 Clonidine HCl (Catapres Tab) 0.1 mg TID PO 10/01/16 10:00 10/31/16 09:59 10/03/16 14:07 0.1 MG Hydromorphone HCl (Dilaudid Tab) 4 mg Q2HWA PRN PO 10/02/16 14:00 10/16/16 13:59 10/03/16 14:05 4 MG Hydroxyzine HCl (Vistaril Tab) 25 mg TID PO 10/02/16 14:00 11/01/16 13:59 10/03/16 14:07 25 MG Ketorolac Tromethamine (Toradol Inj) 30 mg Q6H IV 10/02/16 19:00 10/07/16 18:59 10/03/16 12:53 30 MG Gabapentin (Neurontin Cap) 300 mg TID PO 10/02/16 21:00 11/01/16 20:59 10/03/16 14:07 300 MG Lorazepam (Ativan Tab) 1 mg Q2HWA PRN PO 10/02/16 21:00 11/01/16 20:59 10/03/16 06:31 1 MG Magnesium Chloride (Slow-Mag Tab) 64 mg BID PO 10/03/16 08:00 11/02/16 08:59 10/03/16 08:18 64 MG Bupropion HCl (Wellbutrin-Sr Tab) 150 mg QAM PO 10/04/16 08:00 11/03/16 07:59 Objective Vital Signs Date Time Temp Pulse Resp B/P Pulse Ox O2 Delivery O2 Flow Rate FiO2 10/03/16 13:40 99 10/03/16 12:34 107/74 10/03/16 10:15 Room Air 10/03/16 07:22 36.7 82 18 95/62 94 Room Air 10/03/16 00:28 Room Air 10/02/16 22:53 36.7 99 20 91/56 96 Room Air 10/02/16 22:32 36.8 107 20 99 10/02/16 20:00 Room Air 10/02/16 18:33 36.8 107 20 117/75 99 Room Air 10/02/16 16:00 Room Air 10/02/16 15:29 36.5 87 20 105/72 98 Room Air Physical Exam General Appearance: WD/WN, no apparent distress (patient appeared fatigued) Eyes: normal inspection ENT: hearing grossly normal, pharynx normal Respiratory/Chest: chest non-tender, no respiratory distress, no accessory muscle use, + crackles (diffuse crackles bilaterally) Cardiovascular: regular rate, rhythm, no edema, no JVD, no murmur Abdomen: normal bowel sounds, non tender, soft Extremities: normal capillary refill, + pertinent finding (excoriations on her face and arms bilaterally which is consistent with drug addiction) Neurologic/Psychiatric: alert, oriented x 3 Laboratory Results Results Past 24 Hours Test 10/03/16 07:14 Range/Units White Blood Count 4.72 4.8-10.8 K/uL Red Blood Count 3.72 4.2-5.4 M/uL Hemoglobin 9.8 12.0-16.0 g/dL Hematocrit 30.6 37-47 % Mean Corpuscular Volume 82.3 80-100 fL Mean Corpuscular Hemoglobin 26.3 25-34 pg Mean Corpuscular Hemoglobin Concent 32.0 32-36 g/dl RDW Standard Deviation 44.8 36.4-46.3 fL RDW Coefficient of Variation 14.8 11.5-14.5 % Platelet Count 217 130-400 K/uL Mean Platelet Volume 10.9 7.4-10.4 fL Assessment and Plan 25 year old female with history of IVDU found to have R sided infective endocarditis with septic emboli to the lungs R sided infective endocarditis w/ septic emboli - Ceftriaxone 2g - ID recommended IV dalvance as outpatient - Pain treated with dilaudid PRN and scheduled acetaminophen and toradol - CXR showed interval progression of small bilateral effusions and few scattered emboli Opiate withdrawal - ativan, baclofen, clonidine, hydroxyzine and gabapentin - thiamine for chronic alcohol use Anxiety and polysubstance abuse - wellbutrin per psych recommendation - recommend inpatient rehab facility VTE prophylaxis - heparin Smoking - nicotine patch Dispo - hopefully patient will go to inpatient rehab for drug abuse - will also need to set up outpatient IV dalvance therapy for IE Resident Physician Supervision Note: I interviewed and examined the patient. Discussed with Dr. Galloway and agree with findings and plan as documented in the note. Any exceptions or clarifications are listed here: None Documented By: Phil Webster sleeping comfortably nad, discussed extensively w R1, chart reviewed, [employer]SEM[employer] in the room with her notes that she has had no problems. due to pt's recent increase in bargaining behavior, and my concern that each encounter in this regard raises risk for leaving AMA - will allow to sleep for now vitals noted, nad, breathing unlabored, skin lesions healing, no pallor tricuspid valve endocarditis/bacteremia/sepsis/septic pulmonary emboli - ongoing clinical improvement. continue current care drug abuse/withdrawal - comfortable at this time DVT proph - heparin SQ Continued [facility] stay due to: multiple IV medications needed, home environment unsafe for pt
[2016-10-03 15:47] VITALS: BP 97/64; PULSE 92; TEMP 37.3; O2SAT 97
[2016-10-03 16:44] VITALS: BP 99/65
[2016-10-03 19:05] VITALS: BP 92/58; PULSE 95; TEMP 36.7; O2SAT 98
[2016-10-04] MEDS: KETOROLAC TROMETHAMINE 30 MG/ML VIAL IV SCH ×4 (00:29→19:58)
[2016-10-04 00:35] VITALS: BP 86/54; PULSE 82; TEMP 36.9; O2SAT 97
[2016-10-04] MEDS: HYDROmorphone HCL 2 MG TAB PO PRN ×4 (06:42→21:21)
[2016-10-04 07:14] VITALS: BP 110/63; PULSE 101; TEMP 37.8; O2SAT 96
[2016-10-04] MEDS: hydrOXYzine HCL 25 MG TAB PO SCH ×3 (08:41→19:59)
[2016-10-04] MEDS: ACETAMINOPHEN 325 MG TAB PO SCH ×4 (08:41→20:01)
[2016-10-04] MEDS: BuPROPion SR 150 MG TABCR PO SCH (08:42)
[2016-10-04] MEDS: CHOLECALCIFEROL 1000 INTER.UNIT TAB PO SCH (08:42)
[2016-10-04] MEDS: CEROVITE ADV FORMULA TAB PO SCH (08:42)
[2016-10-04] MEDS: THIAMINE HCL 100 MG TAB PO SCH (08:42)
[2016-10-04] MEDS: GABAPENTIN 300 MG CAP PO SCH ×3 (08:43→19:59)
[2016-10-04] MEDS: CLONIDINE HCL 0.1 MG TAB PO SCH ×3 (08:43→20:00)
[2016-10-04] MEDS: NICOTINE 21 MG/24 HR TDSY TD SCH (08:43)
[2016-10-04] MEDS: MAGNESIUM CHLORIDE 64MG DELAYED REL TAB PO SCH ×2 (08:44→20:00)
[2016-10-04] MEDS: HEPARIN SOD 5000 UNIT/0.5 ML CARP SQ SCH ×2 (08:45→20:02)
[2016-10-04 10:39] VITALS: TEMP 36.9
[2016-10-04 10:55] LABS: HEMATOCRIT 33.3 % (37-47); MEAN CELL VOLUME 82.4 fL (80-100); MEAN CORPUSCULAR HEMOGLOBIN 26.2 pg (25-34); MEAN CORPUSCULAR HGB CONC 31.8 g/dl (32-36); MEAN PLATELET VOLUME 10.1 fL (7.4-10.4); PLATELET COUNT 319 K/uL (130-400); RED BLOOD COUNT 4.04 M/uL (4.2-5.4); WHITE BLOOD COUNT 5.34 K/uL (4.8-10.8)
[2016-10-04 13:57] VITALS: BP 101/66; PULSE 105
[2016-10-04] MEDS: CEFTRIAXONE SOD INJ 2,000 MG in DEXTROSE 5% 50ML 50 ML IV SCH (13:59)
--- NOTE | 2016-10-04 15:06 | Family Medicine Progress Note ---
Progress Note Date of Service Oct 04, 2016. Subjective Pt evaluation today including: conversation w/ patient, physical exam, chart review, lab review, conversation w/ architectural sales consultant, review of inpatient medication list Patient with no acute events overnight. Patient felt warm this morning but otherwise she slept well with no chills or night sweats. Patient still complaining of chest pain and intermittent shortness of breath. Still not eating much and has not had a bowel movement today. says that she is going to phone one of the other rehab facilities to see what they offer. All Other Systems: Reviewed and Negative Objective Vital Signs Date Time Temp Pulse Resp B/P Pulse Ox O2 Delivery O2 Flow Rate FiO2 10/04/16 13:57 105 101/66 10/04/16 10:39 36.9 10/04/16 08:00 Room Air 10/04/16 07:14 37.8 101 18 110/63 96 Room Air 10/04/16 00:35 36.9 82 16 86/54 97 Room Air 10/03/16 19:05 36.7 95 16 92/58 98 Room Air 10/03/16 16:44 99/65 10/03/16 16:00 Room Air 10/03/16 15:47 37.3 92 18 97/64 97 Room Air Physical Exam General Appearance: WD/WN, no apparent distress, + pertinent finding (patient appears comfortable and is making good eye contact ) ENT: hearing grossly normal, pharynx normal Neck: supple, no JVD, trachea midline Respiratory/Chest: no respiratory distress, no accessory muscle use, + crackles (bilaterally) Cardiovascular: regular rate, rhythm, no edema, no JVD, no murmur Abdomen: normal bowel sounds, non tender Neurologic/Psychiatric: alert, normal mood/affect, oriented x 3 Skin: + pertinent finding (excoriations and needle track marcano ) Assessment and Plan 25 year old female with history of IVDU found to have R sided infective endocarditis with septic emboli to the lungs patient is improving clinically and appears to no longer be in withdrawal. Does not appear anxious and is making reasonable eye contact. says she will be speaking to 2nd rehab option in order to see what they offer. Patient likely to be able to go home on Wednesday with IV dalvance treatment at [facility] as once weekly per ID rec's. Question is to whether or not she will be going to inpatient rehab facility or will be discharged home. R sided infective endocarditis w/ septic emboli - Ceftriaxone 2g - ID recommended IV dalvance as outpatient - Pain treated with dilaudid PRN and scheduled acetaminophen and toradol Opiate withdrawal - ativan, baclofen, clonidine, hydroxyzine and gabapentin - thiamine for chronic alcohol use Anxiety and polysubstance abuse - wellbutrin per psych recommendation - recommend inpatient rehab facility VTE prophylaxis - heparin Smoking - nicotine patch Dispo - hopefully patient will go to inpatient rehab for drug abuse - referral to help set up outpatient IV dalvance therapy for IE Resident Physician Supervision Note: I interviewed and examined the patient. Discussed with Dr. Galloway and agree with findings and plan as documented in the note. Any exceptions or clarifications are listed here: None Documented By: Phil Webster awake, pleasant pain improved no fever did have low grade temp but notes she was really bundled up and wonders if that's why. not sure if she wants to go to rehab or not - wants to talk to them to see what they're about but ntoes that she's done rehabs before and only wnts to do that if it seems like it would be a good fit. ros otherwise negative except for as above o: vitals noted nad pleasant nad no respiratory distress MSSA bacteremia/tricuspid endocarditis/sepsis/septic pulmonary emboli - improving. anticipate either home or rehab on dalvance in 24-48hrs polysubstance abuse - appearing out of withdrawal at this time - at least much more calm not agitated not bargaining, appearing clearheaded and rational. understand her position on +- w rehab - will await her decision in this regard. obviously if she goes home will want to try to have her arrange outpt services for maintaining sobriety. imrpoving Continued [facility] stay due to: multiple IV medications needed Discharge planning: uncertain
[2016-10-04] MEDS: LORAZEPAM 1 MG TAB PO PRN ×3 (15:19→22:54)
[2016-10-04 15:43] VITALS: BP 97/66; PULSE 90; TEMP 36.6; O2SAT 98
[2016-10-04] MEDS: NICOTINE POLACRILEX 2 MG GUM MT PRN (20:27)
[2016-10-04 22:20] VITALS: BP 92/57; PULSE 85; TEMP 36.6; O2SAT 96
[2016-10-05] MEDS: KETOROLAC TROMETHAMINE 30 MG/ML VIAL IV SCH ×4 (01:29→19:00)
[2016-10-05] MEDS: HYDROmorphone HCL 2 MG TAB PO PRN ×7 (03:29→23:41)
[2016-10-05] MEDS: LORAZEPAM 1 MG TAB PO PRN ×3 (05:28→19:00)
[2016-10-05 07:20] VITALS: BP 103/61; PULSE 85; TEMP 37.1; O2SAT 96
[2016-10-05 07:52] LABS: BASO % 0.3 %; BASO ABS # 0.02 K/uL (0-0.2); COMPLETE YES; EOS % 9.6 %; HEMATOCRIT 32.9 % (37-47); IG% 2.6 %; LYMPH % 20.9 %; LYMPH ABS # 1.22 K/uL (1.2-3.4); MEAN CELL VOLUME 83.3 fL (80-100); MEAN CORPUSCULAR HEMOGLOBIN 26.6 pg (25-34); MEAN CORPUSCULAR HGB CONC 31.9 g/dl (32-36); MEAN PLATELET VOLUME 9.9 fL (7.4-10.4); NEUT % 60.6 %; PLATELET COUNT 340 K/uL (130-400); RED BLOOD COUNT 3.95 M/uL (4.2-5.4); WHITE BLOOD COUNT 5.84 K/uL (4.8-10.8)
[2016-10-05] MEDS: BuPROPion SR 150 MG TABCR PO SCH (07:59)
[2016-10-05] MEDS: ACETAMINOPHEN 325 MG TAB PO SCH ×5 (07:59→20:18)
[2016-10-05] MEDS: CLONIDINE HCL 0.1 MG TAB PO SCH ×3 (08:00→20:19)
[2016-10-05] MEDS: CHOLECALCIFEROL 1000 INTER.UNIT TAB PO SCH (08:00)
[2016-10-05] MEDS: NICOTINE 21 MG/24 HR TDSY TD SCH (08:00)
[2016-10-05] MEDS: HEPARIN SOD 5000 UNIT/0.5 ML CARP SQ SCH ×2 (08:01→20:20)
[2016-10-05] MEDS: hydrOXYzine HCL 25 MG TAB PO SCH ×3 (08:01→20:19)
[2016-10-05] MEDS: GABAPENTIN 300 MG CAP PO SCH ×3 (08:01→20:18)
[2016-10-05] MEDS: THIAMINE HCL 100 MG TAB PO SCH (08:01)
[2016-10-05] MEDS: CEROVITE ADV FORMULA TAB PO SCH (08:01)
[2016-10-05] MEDS: MAGNESIUM CHLORIDE 64MG DELAYED REL TAB PO SCH ×2 (08:02→20:18)
[2016-10-05 08:22] LABS: BUN/CREATININE RATIO 11.5 (10-20); CREATININE 0.62 mg/dl (0.60-1.20); POTASSIUM 4.6 mmol/L (3.5-5.1)
[2016-10-05 08:46] LABS: CALCIUM 8.5 mg/dl (8.5-10.1)
[2016-10-05 13:29] VITALS: BP 104/67; PULSE 91
--- NOTE | 2016-10-05 13:35 | Family Medicine Progress Note ---
Progress Note Date of Service Oct 05, 2016. Subjective Pt evaluation today including: conversation w/ patient, physical exam, chart review, lab review, review of studies, review of inpatient medication list Patient continues to central chest wall pain with minimal relief with Dilaudid. She says feels like she broke a rib, /10 pain) She denies SOB, calf tenderness, N/V, abdominal pain. Patient also reports couhg and episode of hemoptysis Constitutional: No chills, No fever, No sweats, No weakness Respiratory: + cough, + hemoptysis, + sputum, No shortness of breath Cardiovascular: No chest pain, No claudication, No edema, No orthopnea, No palpitations Abdomen: No diarrhea, No nausea, No pain, No vomiting Musculoskeletal: No calf pain, No swelling Female : No dysuria, No hematuria, No urinary frequency Neurologic: No numbness/tingling, No vertigo Skin: No itch, No rash Medications Current Inpatient Medications Medications (Trade) Dose Ordered Sig/Cami Route Start Time Stop Time Status Last Admin Dose Admin Al Hydrox/Mg Hydrox/Simethicone (Maalox Max Susp) 15 ml Q4H PRN PO 09/28/16 05:00 10/28/16 04:59 Magnesium Hydroxide (Milk Of Magnesia Susp) 30 ml Q12H PRN PO 09/28/16 05:00 10/28/16 04:59 Ondansetron HCl (Zofran Inj) 4 mg Q6H PRN IV 09/28/16 05:00 10/28/16 04:59 Polyethylene (Miralax Powder Packet) 17 gm DAILY PRN PO 09/28/16 05:00 10/28/16 04:59 Acetaminophen (Tylenol Tab) 650 mg Q4HWA PO 09/29/16 08:00 10/29/16 07:59 10/05/16 11:41 650 MG Nicotine (Nicoderm Cq 21MG Patch) 1 patch QAM TD 09/30/16 09:00 10/30/16 08:59 10/04/16 08:43 1 PATCH Miscellaneous (Remove Nicoderm Patch) 1 ea HS N/A 09/29/16 21:00 10/29/16 20:59 10/04/16 14:18 1 EA Nicotine Polacrilex 1 piece 1 piece PRN PRN MT 09/29/16 17:15 10/29/16 17:14 10/04/16 20:27 1 PIECE Ceftriaxone Sodium/Dextrose (Rocephin Inj/D5 50ml) 70 ml @ 100 mls/hr Q24H IV 09/30/16 13:00 11/11/16 12:59 10/04/16 13:59 100 MLS/HR Thiamine HCl (Vitamin B-1 Tab) 100 mg QAM PO 10/01/16 09:00 10/31/16 08:59 10/05/16 08:01 100 MG Multivitamins/ Minerals (Multivitamin W/ Minerals Tab) 1 tab QAM PO 10/01/16 09:00 10/31/16 08:59 10/05/16 08:01 1 TAB Cholecalciferol (Vitamin D Tab) 2,000 inter.unit QAM PO 10/01/16 09:00 10/31/16 08:59 10/05/16 08:00 2,000 INTER.UNIT Heparin Sodium (Porcine) (Heparin Sq 5000 Unit/0.5ml) 5,000 unit Q12 SQ 09/30/16 21:00 10/30/16 20:59 10/05/16 08:01 5,000 UNIT Ergocalciferol (Vitamin D Cap) 50,000 interunit We@0900 PO 10/07/16 09:00 11/06/16 08:59 Clonidine HCl (Catapres Tab) 0.1 mg TID PO 10/01/16 10:00 10/31/16 09:59 10/05/16 13:31 0.1 MG Hydromorphone HCl (Dilaudid Tab) 4 mg Q2HWA PRN PO 10/02/16 14:00 10/16/16 13:59 10/05/16 08:09 4 MG Hydroxyzine HCl (Vistaril Tab) 25 mg TID PO 10/02/16 14:00 11/01/16 13:59 10/05/16 13:31 25 MG Ketorolac Tromethamine (Toradol Inj) 30 mg Q6H IV 10/02/16 19:00 10/07/16 18:59 10/05/16 13:30 30 MG Gabapentin (Neurontin Cap) 300 mg TID PO 10/02/16 21:00 11/01/16 20:59 10/05/16 13:31 300 MG Lorazepam (Ativan Tab) 1 mg Q2HWA PRN PO 10/02/16 21:00 11/01/16 20:59 10/05/16 05:28 1 MG Magnesium Chloride (Slow-Mag Tab) 64 mg BID PO 10/03/16 08:00 11/02/16 08:59 10/05/16 08:02 64 MG Bupropion HCl (Wellbutrin-Sr Tab) 150 mg QAM PO 10/04/16 08:00 11/03/16 07:59 10/05/16 07:59 150 MG Objective Vital Signs Date Time Temp Pulse Resp B/P Pulse Ox O2 Delivery O2 Flow Rate FiO2 10/05/16 13:29 91 104/67 10/05/16 08:00 Room Air 10/05/16 07:20 37.1 85 18 103/61 96 Room Air 10/04/16 22:20 36.6 85 16 92/57 96 Room Air 10/04/16 16:00 Room Air 10/04/16 15:43 36.6 90 20 97/66 98 Room Air 10/04/16 13:57 105 101/66 Physical Exam Notes: General Appearance: WD/WN, no apparent distress, ENT: hearing grossly normal, pharynx normal Neck: supple, no JVD, trachea midline Respiratory/Chest: no respiratory distress, no accessory muscle use, CTA herbert Cardiovascular: regular rate, rhythm, no edema, no JVD, no murmur Abdomen: normal bowel sounds, non tender Neurologic/Psychiatric: alert, normal mood/affect, oriented x 3 Skin: + pertinent finding (excoriations, needle track marcano ) Laboratory Results Results Past 24 Hours Test 10/05/16 07:28 Range/Units White Blood Count 5.84 4.8-10.8 K/uL Red Blood Count 3.95 4.2-5.4 M/uL Hemoglobin 10.5 12.0-16.0 g/dL Hematocrit 32.9 37-47 % Mean Corpuscular Volume 83.3 80-100 fL Mean Corpuscular Hemoglobin 26.6 25-34 pg Mean Corpuscular Hemoglobin Concent 31.9 32-36 g/dl Platelet Count 340 130-400 K/uL Mean Platelet Volume 9.9 7.4-10.4 fL Neutrophils (%) (Auto) 60.6 % Lymphocytes (%) (Auto) 20.9 % Monocytes (%) (Auto) 6.0 % Eosinophils (%) (Auto) 9.6 % Basophils (%) (Auto) 0.3 % Neutrophils # (Auto) 3.54 1.4-6.5 K/uL Lymphocytes # (Auto) 1.22 1.2-3.4 K/uL Monocytes # (Auto) 0.35 0.11-0.59 K/uL Eosinophils # (Auto) 0.56 0-0.5 K/uL Basophils # (Auto) 0.02 0-0.2 K/uL RDW Standard Deviation 46.0 36.4-46.3 fL RDW Coefficient of Variation 15.0 11.5-14.5 % Immature Granulocyte % (Auto) 2.6 % Immature Granulocyte # (Auto) 0.15 0.00-0.02 K/uL Sodium Level 141 136-145 mmol/L Potassium Level 4.6 3.5-5.1 mmol/L Chloride Level 106 98-107 mmol/L Carbon Dioxide Level 27 21-32 mmol/L Anion Gap 8.0 3-11 mmol/L Blood Urea Nitrogen 7 7-18 mg/dl Creatinine 0.62 0.60-1.20 mg/dl Est Creatinine Clear Calc Drug Dose 131.0 ml/min Estimated GFR () 146.3 Estimated GFR (Non- 126.2 BUN/Creatinine Ratio 11.5 10-20 Random Glucose 102 70-99 mg/dl Calcium Level 8.5 8.5-10.1 mg/dl Assessment and Plan 25 year old female with history of IV drug abuse found to have Rt sided infective endocarditis complicated by septic pulmonary emboli. saturating well, VSS, currently on ceftriaxone Rt sided infective endocarditis w/ septic pulmonary emboli -Continue Ceftriaxone 2g - Pain treated with dilaudid PRN and scheduled acetaminophen and toradol -IV Dalvance therapy on d/c per ID Chest Pain - likely secondary to hx of septic pulm. emboli complicated by possible opiate seeking due to known hx of substance abuse -ACS ruled out with negative cardiac enzymes, cxr not consistent with PNA, Pneumothorax - Continue pain management as above Opiate withdrawal - ativan, baclofen, clonidine, hydroxyzine and gabapentin - thiamine for chronic alcohol use Anxiety and polysubstance abuse - wellbutrin per psych recommendation - inpatient rehab facility on d/c VTE prophylaxis - heparin Smoking - nicotine patch Dispo - Plan for inpatient rehab for drug abuse - Outpatient IV Dalvance therapy for Infective Endocarditis Resident Physician Supervision Note: I interviewed and examined the patient. Discussed with Dr. Kelly and agree with findings and plan as documented in the note. Any exceptions or clarifications are listed here: Upon my exam, the patient was without complaints. She was without noted resp distress; she was visiting with family members. Case discussed with ID and Case Management; will continue IV antibiotics in hospital pending placement for inpatient rehabilitation. Documented By: Yeison Salas Documented By: Yeison Salas Continued [facility] stay due to: multiple IV medications needed Discharge planning: rehab hospital Resident Tracking Resident Involvement: Resident Care Provided Care Provided: Adult Hospital Medicine
[2016-10-05 15:02] VITALS: BP 101/66; PULSE 94; TEMP 36.7; O2SAT 97
[2016-10-05] MEDS: CEFTRIAXONE SOD INJ 2,000 MG in DEXTROSE 5% 50ML 50 ML IV SCH (15:18)
--- NOTE | 2016-10-05 18:45 | Progress Note ---
Progress Note Date of Service Oct 05, 2016. Progress Note I was called by nursing to see the patient who had voiced intent to leave the hospital AGAINST MEDICAL ADVICE. Monitor the room, the patient was lying without any signs of distress or pain. When I ask her why she wanted to leave the hospital, she stated it is because her pain was not being well controlled. She was unhappy with the fact that she was being given infrequent doses of Dilaudid and then Ativan and effort to control her symptoms. The patient became extremely tearful and mildly agitated as the conversation continued. She states she has continued pain along her rib cage; when she points to the area of her pain, it seems mostly to be along the inferior costal border bilaterally but she also states it will radiate to her upper chest and shoulders. I reiterated the seriousness of her current infection and the need for IV antibiotics. I emphasized that the culprit for her infection was her intravenous drug use. The patient is willing to go to inpatient rehabilitation but she states that her willingness to do so does not mean she has an addiction problem. Her stated pain seems disproportionate to her exam, including her vital signs and her appearance when I walked into the room. I've ordered a chest x-ray for this evening. I reiterated the plan to treat her infectious endocarditis. I explained to her that there is no oral antibiotic that will treat her infectious endocarditis. I commended her for her willingness to seek inpatient rehabilitation. We'll continue current care. Appreciate infectious disease and psychiatry input.
--- NOTE | 2016-10-05 19:58 | DIAGNOSTIC IMAGING REPORT ---
TWO VIEW CHEST CLINICAL HISTORY: Atypical chest pain. FINDINGS: PA and lateral chest radiographs are compared to study dated 10/02/2016 and correlated with chest CT dated 09/28/2016. The cardiomediastinal silhouette is unremarkable. There is bibasilar airspace consolidation. Additional foci of nodular airspace opacity are seen in the upper lobes. Pleural effusions have resolved from 10/02/2016. There is no pneumothorax. The bony thorax appears intact. IMPRESSION: 1. Bibasilar airspace consolidation as well as small foci of nodular airspace opacity upper lobes are similar appearance to 10/02/2016. The appearance remains most typical for multifocal septic emboli. 2. Small pleural effusions have resolved. Electronically signed by: Herrera Garcia M.D. 10/05/2016 7:56 PM Dictated Date/Time: 10/05/2016 7:54 PM
[2016-10-05 20:32] VITALS: BP 96/62; PULSE 85
[2016-10-05 23:12] VITALS: BP 96/65; PULSE 79; TEMP 36.5; O2SAT 98
[2016-10-06] VITALS: O2SAT 98
[2016-10-06] MEDS: LORAZEPAM 1 MG TAB PO PRN ×4 (00:28→23:14)
[2016-10-06] MEDS: KETOROLAC TROMETHAMINE 30 MG/ML VIAL IV SCH ×5 (00:28→19:34)
[2016-10-06] MEDS: CEROVITE ADV FORMULA TAB PO SCH (07:38)
[2016-10-06] MEDS: GABAPENTIN 300 MG CAP PO SCH ×3 (07:38→19:35)
[2016-10-06] MEDS: THIAMINE HCL 100 MG TAB PO SCH (07:38)
[2016-10-06] MEDS: NICOTINE 21 MG/24 HR TDSY TD SCH (07:38)
[2016-10-06] MEDS: CLONIDINE HCL 0.1 MG TAB PO SCH ×3 (07:38→19:36)
[2016-10-06] MEDS: BuPROPion SR 150 MG TABCR PO SCH (07:38)
[2016-10-06] MEDS: hydrOXYzine HCL 25 MG TAB PO SCH ×3 (07:39→19:36)
[2016-10-06] MEDS: MAGNESIUM CHLORIDE 64MG DELAYED REL TAB PO SCH ×2 (07:39→19:35)
[2016-10-06] MEDS: CHOLECALCIFEROL 1000 INTER.UNIT TAB PO SCH (07:39)
[2016-10-06 07:40] VITALS: BP 105/71; PULSE 87; TEMP 37; O2SAT 97
[2016-10-06] MEDS: HEPARIN SOD 5000 UNIT/0.5 ML CARP SQ SCH ×2 (07:45→21:25)
[2016-10-06] MEDS: ACETAMINOPHEN 325 MG TAB PO SCH ×4 (07:45→19:37)
[2016-10-06] MEDS: HYDROmorphone HCL 2 MG TAB PO PRN ×6 (09:24→22:12)
--- NOTE | 2016-10-06 11:29 | Discharge Instructions ---
Discharge Instructions Date of Service Oct 06, 2016. Admission Reason for Admission: Endocarditis Discharge Discharge Diagnosis / Problem: Infective Endcardits, Septic Pulmonary Emboli, Polysubstance abuse Discharge Goals Goal(s): Decrease discomfort, Improve function, Increase independence, Improve disease control, Improve nutritional status, Learn about illness, Diagnostic testing, Therapeutic intervention, Screening, Prevent Disease Progression, Specific goals Activity Recommendations Activity Limitations: per Instructions/Follow-up section . Instructions / Follow-Up Instructions / Follow-Up -Please refrain from recreational drugs -Please report for biweekly to medical treatment for IV Antibiotics (Dalvance) -Please attend inpatient drug rehabilitation -Please follow up primary care provider this week -If you experience worsening symptoms of uncontrollable pain, difficulty breathing, fevers ,chills, palpitation, please contact clinic or return to Emergency Dept Current Hospital Diet Patient's current hospital diet: Vegetarian Diet Discharge Diet Recommended Diet: Regular Diet Pending Studies Studies pending at discharge: no Medical Emergencies . Who to Call and When: Medical Emergencies: If at any time you feel your situation is an emergency, please call 911 immediately. . Non-Emergent Contact Non-Emergency issues call your: Primary Care Provider Call Non-Emergent contact if: temperature is above 100.5, your pain is not controlled, your pain is worsening . . "Provider Documentation" section prepared by Magdi Kelly. . VTE Core Measure Inpt VTE Proph given/why not?: SCD's Resident Tracking Resident Involvement: Resident Care Provided Care Provided: Adult Hospital Medicine
[2016-10-06 13:12] VITALS: BP 103/68; PULSE 101
[2016-10-06] MEDS: CEFTRIAXONE SOD INJ 2,000 MG in DEXTROSE 5% 50ML 50 ML IV SCH (13:13)
[2016-10-06 15:09] VITALS: BP 105/68; PULSE 86; TEMP 36.6; O2SAT 98
--- NOTE | 2016-10-06 16:50 | Family Medicine Progress Note ---
Progress Note Date of Service Oct 06, 2016. Subjective Pt evaluation today including: conversation w/ patient, conversation w/ family , physical exam, chart review, lab review, review of studies, review of inpatient medication list Pain: chest wall pain Patient continues to report significant chest wall pain this morning worse w/ breathing in spite of Dilaudid, Morphine. She also reports cough with hemoptysis Pt denies fevers, shortness of breath, nausea, vomiting, diarrhea. Constitutional: No chills, No fever, No weakness Respiratory: No cough Cardiovascular: + chest pain, No edema, No palpitations Abdomen: No constipation, No diarrhea, No nausea, No pain Musculoskeletal: No calf pain, No swelling Female : No dysuria, No hematuria, No urinary frequency Psychiatric: + substance abuse Medications Current Inpatient Medications Medications (Trade) Dose Ordered Sig/Cami Route Start Time Stop Time Status Last Admin Dose Admin Al Hydrox/Mg Hydrox/Simethicone (Maalox Max Susp) 15 ml Q4H PRN PO 09/28/16 05:00 10/28/16 04:59 Magnesium Hydroxide (Milk Of Magnesia Susp) 30 ml Q12H PRN PO 09/28/16 05:00 10/28/16 04:59 Ondansetron HCl (Zofran Inj) 4 mg Q6H PRN IV 09/28/16 05:00 10/28/16 04:59 Polyethylene (Miralax Powder Packet) 17 gm DAILY PRN PO 09/28/16 05:00 10/28/16 04:59 Acetaminophen (Tylenol Tab) 650 mg Q4HWA PO 09/29/16 08:00 10/29/16 07:59 10/06/16 15:33 650 MG Nicotine (Nicoderm Cq 21MG Patch) 1 patch QAM TD 09/30/16 09:00 10/30/16 08:59 10/06/16 07:38 1 PATCH Miscellaneous (Remove Nicoderm Patch) 1 ea HS N/A 09/29/16 21:00 10/29/16 20:59 10/04/16 14:18 1 EA Nicotine Polacrilex 1 piece 1 piece PRN PRN MT 09/29/16 17:15 10/29/16 17:14 10/04/16 20:27 1 PIECE Ceftriaxone Sodium/Dextrose (Rocephin Inj/D5 50ml) 70 ml @ 100 mls/hr Q24H IV 09/30/16 13:00 11/11/16 12:59 10/06/16 13:13 100 MLS/HR Thiamine HCl (Vitamin B-1 Tab) 100 mg QAM PO 10/01/16 09:00 10/31/16 08:59 10/06/16 07:38 100 MG Multivitamins/ Minerals (Multivitamin W/ Minerals Tab) 1 tab QAM PO 10/01/16 09:00 10/31/16 08:59 10/06/16 07:38 1 TAB Cholecalciferol (Vitamin D Tab) 2,000 inter.unit QAM PO 10/01/16 09:00 10/31/16 08:59 10/06/16 07:39 2,000 INTER.UNIT Heparin Sodium (Porcine) (Heparin Sq 5000 Unit/0.5ml) 5,000 unit Q12 SQ 09/30/16 21:00 10/30/16 20:59 10/05/16 08:01 5,000 UNIT Ergocalciferol (Vitamin D Cap) 50,000 interunit We@0900 PO 10/07/16 09:00 11/06/16 08:59 Clonidine HCl (Catapres Tab) 0.1 mg TID PO 10/01/16 10:00 10/31/16 09:59 10/06/16 13:13 0.1 MG Hydromorphone HCl (Dilaudid Tab) 4 mg Q2HWA PRN PO 10/02/16 14:00 10/16/16 13:59 10/06/16 14:24 4 MG Hydroxyzine HCl (Vistaril Tab) 25 mg TID PO 10/02/16 14:00 11/01/16 13:59 10/06/16 13:11 25 MG Ketorolac Tromethamine (Toradol Inj) 30 mg Q6H IV 10/02/16 19:00 10/07/16 18:59 10/06/16 13:10 30 MG Gabapentin (Neurontin Cap) 300 mg TID PO 10/02/16 21:00 11/01/16 20:59 10/06/16 13:12 300 MG Lorazepam (Ativan Tab) 1 mg Q2HWA PRN PO 10/02/16 21:00 11/01/16 20:59 10/06/16 15:31 1 MG Magnesium Chloride (Slow-Mag Tab) 64 mg BID PO 10/03/16 08:00 11/02/16 08:59 10/06/16 07:39 64 MG Bupropion HCl (Wellbutrin-Sr Tab) 150 mg QAM PO 10/04/16 08:00 11/03/16 07:59 10/06/16 07:38 150 MG Objective Vital Signs Date Time Temp Pulse Resp B/P Pulse Ox O2 Delivery O2 Flow Rate FiO2 10/06/16 15:09 36.6 86 20 105/68 98 Room Air 10/06/16 13:12 101 103/68 10/06/16 08:00 Room Air 10/06/16 07:40 37.0 87 22 105/71 97 Room Air 10/06/16 00:00 98 Room Air 10/05/16 23:12 36.5 79 16 96/65 98 Room Air 10/05/16 20:32 85 96/62 Physical Exam Notes: General Appearance: WD/WN, anxious , tearful ENT: hearing grossly normal, pharynx normal Neck: supple, no JVD, trachea midline Respiratory/Chest: no respiratory distress, no accessory muscle use, CTA herbert, chest wall tenderness to palpation Cardiovascular: regular rate, rhythm, no edema, no JVD, no murmur Abdomen: normal bowel sounds, non tender Neurologic/Psychiatric: alert, normal mood/affect, oriented x 3 Skin: + pertinent finding (excoriations, needle track marcano ) Assessment and Plan 25 year old female with history of IV drug abuse found to have Rt sided infective endocarditis complicated by septic pulmonary emboli. saturating well, VSS, currently on ceftriaxone Rt sided infective endocarditis w/ septic pulmonary emboli -Continue Ceftriaxone 2g - Pain treated with dilaudid PRN and scheduled acetaminophen and Toradol -IV Dalvance therapy on d/c per ID Chest Pain - likely secondary to hx of septic pulm. emboli complicated by possible opiate seeking due to known hx of substance abuse -ACS ruled out with negative cardiac enzymes, cxr not consistent with PNA, Pneumothorax - Continue pain management as above Opiate withdrawal - ativan, baclofen, clonidine, hydroxyzine and gabapentin - thiamine for chronic alcohol use Anxiety and polysubstance abuse - wellbutrin per psych recommendation - inpatient rehab facility on d/c pending approval - VTE prophylaxis - heparin Smoking - nicotine patch Dispo - Plan for inpatient rehab for drug abuse pending approval -Spoke to Nico with [facility] who informed me rehab facility may take patient pending final approval from medical imaging technologist. F/u with Case management - Outpatient IV Dalvance therapy for Infective Endocarditis 1x/wk for 6 wks Resident Physician Supervision Note: I was present with Dr. Kelly during the history and exam. I discussed the case with the resident and agree with the findings and plan as documented in the note. Any exceptions or clarifications are listed here: The patient was seen today with her mother at bedside. At current, is been difficulty finding an inpatient rehabilitation facility that will accept her with the need for IV antibiotics. The patient and family has reached out to [facility] which may have located a facility but is willing to take her and her need for IV antibiotics. This is apparently awaiting medical imaging technologist approval; this information was relayed to the patient. The alternative, if we cannot find an inpatient facility for rehabilitation, would be discharged to home with outpatient rehabilitation and weekly visits to [facility] for Dalvance. She continues to complain of pain, although the pain is disproportionate to her physical exam. I suspect this is combination of either symptomatic medication, a low pain threshold secondary to opioid abuse, and/or withdrawal. Continue to monitor. While awaiting word from the inpatient facility, will continue to pursue outpatient approval for Dalvance in case the inpatient facility does not accept her. Documented By: Yeison Salas Continued [facility] stay due to: multiple IV medications needed Discharge planning: uncertain Resident Tracking Resident Involvement: Resident Care Provided Care Provided: Adult Hospital Medicine
[2016-10-06 19:40] VITALS: BP 108/71; PULSE 99
[2016-10-06 23:40] VITALS: BP 103/69; PULSE 82; TEMP 37; O2SAT 97
[2016-10-07] MEDS: HYDROmorphone HCL 2 MG TAB PO PRN ×4 (00:14→13:09)
[2016-10-07] MEDS: KETOROLAC TROMETHAMINE 30 MG/ML VIAL IV SCH ×4 (01:00→13:06)
[2016-10-07] MEDS: LORAZEPAM 1 MG TAB PO PRN ×2 (02:18→07:44)
[2016-10-07 07:53] VITALS: BP 85/63; PULSE 97; TEMP 37.4; O2SAT 93
[2016-10-07] MEDS: CLONIDINE HCL 0.1 MG TAB PO SCH ×2 (07:59→12:49)
[2016-10-07] MEDS ORDERED: ERGOCALCIFEROL 50,000 INTER.UNIT CAP PO SCH (09:00)
[2016-10-07] MEDS: CEROVITE ADV FORMULA TAB PO SCH (10:30)
[2016-10-07] MEDS: MAGNESIUM CHLORIDE 64MG DELAYED REL TAB PO SCH (10:37)
[2016-10-07] MEDS: GABAPENTIN 300 MG CAP PO SCH ×2 (10:37→13:07)
[2016-10-07] MEDS: ACETAMINOPHEN 325 MG TAB PO SCH (10:38)
[2016-10-07] MEDS: hydrOXYzine HCL 25 MG TAB PO SCH ×2 (10:39→13:07)
[2016-10-07] MEDS: THIAMINE HCL 100 MG TAB PO SCH (10:40)
[2016-10-07] MEDS: CHOLECALCIFEROL 1000 INTER.UNIT TAB PO SCH (10:40)
[2016-10-07] MEDS: BuPROPion SR 150 MG TABCR PO SCH (10:40)
[2016-10-07] MEDS: NICOTINE 21 MG/24 HR TDSY TD SCH (10:41)
[2016-10-07] MEDS: HEPARIN SOD 5000 UNIT/0.5 ML CARP SQ SCH (10:49)
[2016-10-07] MEDS: CEFTRIAXONE SOD INJ 2,000 MG in DEXTROSE 5% 50ML 50 ML IV SCH (10:50)
[2016-10-07] MEDS ORDERED: DALB1SOL IV (10:53)
[2016-10-07 11:04] VITALS: BP 94/65; PULSE 109
[2016-10-07 11:22] VITALS: BP 94/65; PULSE 109; TEMP 37.4; O2SAT 93
--- NOTE | 2016-10-07 12:54 | Discharge Summary ---
Discharge Summary Date of Service Oct 07, 2016. (Magdi Kelly MD) Discharge Summary Admission Date: Sep 28, 2016 at 04:54 Discharge Date: Oct 06, 2016 Discharge Disposition: Home Principal Diagnosis: Infective Endocarditis, Opiate Withdrawal Immunizations: Have You Had Influenza Vaccine: No History of Tetanus Vaccine?: Yes History of Pneumococcal: No History of Hepatitis B Vaccine: Yes Procedures: CHEST ONE VIEW PORTABLE HISTORY: Sepsis COMPARISON: None. FINDINGS: Bilateral hilar prominence. A few small scattered patchy airspace opacities. No pneumothorax. No pleural effusions. The heart is normal in size. IMPRESSION: Small scattered patchy airspace opacities. This favors a pneumonia. There is bilateral hilar prominence which could represent lymphadenopathy. CHEST CTA for PULMONARY ARTERIES CT DOSE: 336.15 mGy.cm HISTORY: Chest pain dyspnea TECHNIQUE: Multiaxial CT images of the chest were performed following the intravenous administration of contrast to evaluate the pulmonary arteries. Maximal intensity projection images were also obtained. COMPARISON STUDY: None. FINDINGS: Thoracic aorta is normal in course and caliber. Multiple partially necrotic nodules throughout both hemithoraces. Diagnostic considerations include metastatic disease, septic emboli, versus Joanne's granulomatosis. Pulmonary vasculature enhances appropriately. No filling defects. Moderate mediastinal and/or hilar nodes. IMPRESSION: 1. Study is negative for pulmonary embolus. 2. Multifocal areas of centrally necrotic infiltrative change. Differential is as discussed above. ] MRI OF THE BRAIN WITHOUT AND WITH IV CONTRAST CLINICAL HISTORY: AMS, infective endocarditis ?septic emboli to brain mental status change COMPARISON STUDY: No previous studies for comparison. TECHNIQUE: Utilizing a 1.5 Meme magnet and dedicated coil, multiplanar, multiecho imaging of the brain was performed pre and postcontrast administration. IV administration of 8 mL of Gadavist contrast was uneventful. FINDINGS: Diffusion-weighted images show no evidence for an acute ischemic event. Signal characteristics the cerebellar as well as cerebral hemispheres appear unremarkable. Ventricular system is midline. Sella and parasellar regions are unremarkable. Postcontrast images are considered negative for an enhancing lesion. IMPRESSION: Negative study ] KUB CLINICAL HISTORY: No BM or flatus ?obstruction ?constipation COMPARISON STUDY: No previous studies for comparison. FINDINGS: There is no pathologic bowel dilatation. There is mild to moderate stool within the colon. There are no abnormal abdominal calcifications. There are small bilateral pleural effusions with associated left basilar airspace opacities. IMPRESSION: 1. Small bilateral pleural effusions with left basilar airspace opacities 2. No evidence of pathologic bowel dilatation 3. Mild to moderate stool within the colon ] CHEST 2 VIEWS ROUTINE HISTORY: chest pain, shortness of breath COMPARISON: Chest CTA 09/28/2016. FINDINGS: The heart is normal in size. Small bilateral pleural effusions and bibasilar airspace opacities have progressed. A few scattered cavitary nodules are again noted but better present on the prior chest CT., Nodule within the right upper lobe measures 13 mm. No pneumothorax. IMPRESSION: 1. Interval progression of the small bilateral pleural effusions and bibasilar airspace opacities. 2. A few scattered small cavitary nodules are again noted. This could represent septic pulmonary emboli, an atypical infectious process such as tuberculosis, or systemic inflammatory disease. Metastatic disease is considered less likely in a patient of this age. ] TWO VIEW CHEST CLINICAL HISTORY: Atypical chest pain. FINDINGS: PA and lateral chest radiographs are compared to study dated 10/02/2016 and correlated with chest CT dated 09/28/2016. The cardiomediastinal silhouette is unremarkable. There is bibasilar airspace consolidation. Additional foci of nodular airspace opacity are seen in the upper lobes. Pleural effusions have resolved from 10/02/2016. There is no pneumothorax. The bony thorax appears intact. IMPRESSION: 1. Bibasilar airspace consolidation as well as small foci of nodular airspace opacity upper lobes are similar appearance to 10/02/2016. The appearance remains most typical for multifocal septic emboli. 2. Small pleural effusions have resolved. Interpretation Summary Name: DAMI JUDD Study Date: 09/28/2016 09:58 AM BP: 110/55 mmHg Patient Location: 2T\S\S241\S\2 HR: 102 : 1990 (M/d/yyyy) Gender: Female Height: 68 in Age: 25 yrs Ethnicity: CA Weight: 145 lb Ordering Physician: Geronimo Weinstein Performed By: Larissa Cheney Reason For Study: ENDOCARDITIS BSA: 1.8 m2 -- Conclusions -- 1. Normal left ventricular systolic function. EF 60%. No regional wall motion abnormalities. No left ventricular hypertrophy. No significant diastolic dysfunction. 2. Large echodensity on tricuspid valve leaflet; possible vegetation. 3. Normal estimated right ventricular systolic pressure. 4. No prior study available for comparison. Procedure Details A complete two-dimensional transthoracic echocardiogram was performed (2D, M- mode, Doppler and color flow Doppler). Left Ventricle The left ventricle is normal in size. There is normal left ventricular wall thickness. Left ventricular systolic function is normal. The left ventricular wall motion is normal. Right Ventricle The right ventricle is normal in size and function. The right ventricular systolic function is normal as assessed by tricuspid annular plane systolic excursion (TAPSE) (normal >1.5 cm). Atria The left atrial size is normal. Right atrial size is normal. There is no evidence of atrial septal defect, but resolution does not allow assessment for a patent foramen ovale. Mitral Valve The mitral valve leaflets appear normal. There is no evidence of stenosis, fluttering, or prolapse. Significant mitral regurgitation is absent. Tricuspid Valve Large echodensity on tricuspid valve leaflet; possible vegetation. There is no tricuspid stenosis. There is mild tricuspid regurgitation. Aortic Valve The aortic valve is normal in structure and function. The aortic valve is trileaflet. No hemodynamically significant valvular aortic stenosis. No aortic regurgitation is present. Pulmonic Valve The pulmonic valve is not well seen, but is grossly normal. There is no pulmonic valvular stenosis. Mild pulmonic valvular regurgitation. Great Vessels The aortic root is normal size. Ascending aorta of normal dimension Aortic arch of normal dimension. Pericardium/Pleural There is no pericardial effusion. Great Vessels Normal inferior vena cava size and collapsability with sniff indicates a normal right atrial pressure of 3 mmHg Consultations: Infectious Disease (Magdi Kelly MD) Medication Reconciliation New Medications: Dalbavancin HCl (Dalvance) 500 Mg Tasha 1500 GM IV every 2 weeks for 42 Days, #3 DOSE 0 Refills Continued Medications: Clonidine Hcl (Catapres) Unknown Strength Tab 3 Refills Discharge Exam Review of Systems: Constitutional: No chills, No fatigue, No fever Respiratory: No cough, No shortness of breath Cardiovascular: + chest pain (chest wall), No orthopnea, No palpitations Abdomen: No nausea, No pain, No vomiting Genitourinary - Female: No dysuria, No urinary frequency, No urinary urgency Psychiatric: + anxiety, + substance abuse Physical Exam: General Appearance: WD/WN, + mild distress Eyes: normal inspection, PERRL, EOMI Neck: supple, no carotid bruits, trachea midline Respiratory/Chest: + pertinent finding (chest wall tenderness on exam) Cardiovascular: regular rate, rhythm, no edema, no murmur Abdomen / GI: normal bowel sounds, non tender, soft Extremities: normal inspection, no calf tenderness, no pedal edema Neurologic/Psychiatric: alert, oriented x 3 Skin: warm/dry (Magdi Kelly MD) Hospital Course This is a 25 yo F w/ hx of IV drug abuse who presented with fever and Chest wall pain after waking up in motel and not recalling how she got there. She had a systolic murmur on exam . On admission, patient had fever 103.5. CT CHest showed multiple septic emboli . Echo was performed showing Large echodensity on tricuspid valve leaflet consistent with possible vegetation.She was started on Vancomycin and Ceftriaxone. Blood cx's showed MSSA. Abx was switched to Ceftriaxone 2g daily. Tox screen was positive for amphetamines, MDMA, marijuana , opiates. During hospital stay, patient was managed for opiate withdrawal with Ativan. Fever resolved, no leukocytosis. Patient continued to complain of pain during hospital stay despite IV Dilaudid, Toradol. Patient refused Lidoderm. Patient along with her mother showed interest in getting inpatient drug rehab. [facility] in [place], associated with [facility] agreed to take her despite need for IV ABX on discharge. Patient was discharged 10/07 with prescription for IV Dalvance 1500 g once [id number] x3 starting day after discharge with the plan of flying to rehab facility on evening of discharge. Total Time Spent: Less than 30 minutes This includes examination of the patient, discharge planning, medication reconciliation, and communication with other providers. (Magdi Kelly MD) Resident Physician Supervision Note: I was present with Dr. Kelly during the history and exam. I discussed the case with the resident and agree with the findings and plan as documented in the note. Any exceptions or clarifications are listed here: Patient and family, with coordination from case management, have obtained inpatient rehabilitation at [facility] ([place], [place]) thru [facility]. The patient is voluntarily choosing in patient rehabilitation. The center has also accepted the patient with the realization of her need for IV antibiotics. The patient's family will drive the patient to the airport, and at the end of the direct flight, she will be met by rehabilitation center staff. The patient will get her dose of Rocephin today, prior to leaving. A script and order was written for Delvance 1500 mg, first dose tomorrow, then q2 weeks for a total of 6 weeks of therapy. Upon my exam today, she did not seem to have outward signs of uncontrolled pain. She admitted refusing the lidoderm patch. I believe that the best chance for recovery is thru inpatient rehabilitation. I did express some concern regarding the logistics of flying to [place], but after an extensive search, this was the only facility willing to accept her. If the flight today were to fall thru, I instructed the patient to contact our office so that we could arrange antibiotic therapy here in [place] tomorrow. Documented By: Yeison Salas Total Time Spent: Greater than 30 minutes (Yeison Salas.,D.O.) Discharge Instructions Please refer to the electronic Patient Visit Report (Discharge Instructions) for additional information. (Magdi Kelly MD)
--- NOTE | 2016-10-08 07:05 | EDITING REQUIRED CODING QUERY ---
SEPSIS To promote full compliance with coding requirements relating to patient care, physician participation is requested in all cases of sound person uncertainty. Please assist us with the question(s) below: In responding to this query, please exercise your independent professional judgement. The fact that a question is asked does not imply that any particular answer is desired or expected. We appreciate your clarification on this issue. Throughout the medical record, you have clearly documented a localized infection and your patient has clinical evidence of a generalized sepsis or severe sepsis. The term urosepsis is a nonspecific entity and is coded as an UTI. If the patient has sepsis, severe sepsis, from an urinary source or some other source, please clarify in your response below. The medical record reflects the following clinical findings: (With dates as appropriate) (Body temperature of >38.3 C(101 F) or <36 C(96.8F), pulse >90/minute, respirations >20/minute, WBC count >12,000 or <4,000, altered mental status, significant edema or positive fluid balance, hyperglycemia without diabetes, hypotension, metabolic acidosis (elev. lactate level, anion gap or reduced blood pH), shock, positive blood culture (enter organism) The patient had infective endocarditis which is likely secondary to intravenous drug use. ()Bacteremia (Nonspecific laboratory finding of bacteria in the blood) Specify Organism () Present on Admission () Not present on admission () Unable to clinically determine () Septicemia (Systemic disease associated with the presence of pathogenic microorganisms in the blood): Specify Organism () Present on Admission () Not present on admission () Unable to clinically determine () Sepsis Specify Organism Specify Associated Condition/Diagnosis () Present on Admission () Not present on admission () Unable to clinically determine () Severe Sepsis (Sepsis associated with acute organ dysfunction) Specify Organism Specify Associated Condition/Diagnosis () Present on Admission () Not present on admission () Unable to clinically determine () Septic Shock (Severe sepsis with acute circulatory failure, unexplained by other causes) () Present on Admission () Not present on admission () Unable to clinically determine () Other, patient has:
[2016-10-09 13:25] LABS: 7-AMINOFLUNITRAZEPAM URINE < 10 ng/mL; NOR-FLUNITRAZEPAM URINE < 10 ng/mL; ROHYPNOL URINE < 10 ng/mL
== END 2016-10-07 13:30 | disposition other institution (70) | DRG 288 ==
LOC: ENRESERVTM → ENRESERVDT → C.EDB 00:13 → C.2T 04:54 → C.MS4W 10-02 22:49
PROVIDERS: ADMIT Internal Medicine; ATTEND Family Medicine
DX: I33.0 Acute and subacute infective endocarditis (principal); I26.90 Septic pulmonary embolism without acute cor pulmonale; F11.23 Opioid dependence with withdrawal; E87.1 Hypo-osmolality and hyponatremia; T76.21XA Adult sexual abuse, suspected, initial encounter; B95.61 Methicillin susceptible Staphylococcus aureus infection as the cause of diseases classified elsewhere; D69.59 Other secondary thrombocytopenia; L98.8 Other specified disorders of the skin and subcutaneous tissue; E83.39 Other disorders of phosphorus metabolism; E83.42 Hypomagnesemia; F31.9 Bipolar disorder, unspecified; F19.94 Other psychoactive substance use, unspecified with psychoactive substance-induced mood disorder; F12.10 Cannabis abuse, uncomplicated; F15.10 Other stimulant abuse, uncomplicated; F16.10 Hallucinogen abuse, uncomplicated; Z11.3 Encounter for screening for infections with a predominantly sexual mode of transmission; Z11.4 Encounter for screening for human immunodeficiency virus [HIV]; F17.210 Nicotine dependence, cigarettes, uncomplicated; Z51.81 Encounter for therapeutic drug level monitoring; Z79.899 Other long term (current) drug therapy

== ENCOUNTER 2016-09-28 17:43 | Emergency (ER) | payer OTHER ==
[~2016-09-28 17:43] MED LIST: CLON0.1T12
[2016-09-28 18:48] VITALS: BP 112/52; PULSE 118; O2SAT 99
== END 2016-09-28 18:40 | disposition still patient (30) ==
LOC: EDBD 17:43 → C.EDB 17:45
DX: T76.21XA Adult sexual abuse, suspected, initial encounter (principal)

== ENCOUNTER → 2017-07-15 | Outpatient (CLI) | payer OTHER ==
[~2017-07-15] MED LIST changes: +DALB1SOL IV
--- NOTE | 2017-07-15 16:50 | DIAGNOSTIC IMAGING REPORT ---
CHEST 2 VIEWS ROUTINE CLINICAL HISTORY: Fever and cough. COMPARISON STUDY: Chest radiograph October 05, 2016. FINDINGS: Lung volumes are normal. No pneumothorax or pleural effusion is noted. There is no evidence for pulmonary edema. Cardiac size is normal. Mild bibasilar opacities are noted, including a 1.7 cm right lower lung nodular density. Airspace opacities are diminished when compared to exam of October 05, 2016. IMPRESSION: Mild bibasilar opacities, including a 1.7 cm nodular right lower lung opacity. Extent of opacities is diminished when compared to study of October 05, 2016. Therefore, this may reflect scarring or atelectasis. However, an infectious process could appear similar. Short-term radiographic follow-up is recommended. Electronically signed by: Alfredo Baldwin M.D. 07/15/2017 4:49 PM Dictated Date/Time: 07/15/2017 4:47 PM
== END | disposition home or self-care (01) ==
LOC: C.RAD1850 15:49
PROVIDERS: ATTEND Internal Medicine
DX: R50.9 Fever, unspecified (principal); R05 Cough; R09.89 Other specified symptoms and signs involving the circulatory and respiratory systems

== ENCOUNTER 2018-08-16 08:15 | Inpatient (IN) ==
[2018-08-16] MEDS ORDERED: BUTORPHANOL TARTRATE 1 MG/ML VIAL ONE (17:05)
[2018-08-16] MEDS: LACTATED RINGER'S 1,000 ML IV SCH ×2 (17:11→20:39)
[2018-08-16] MEDS ORDERED: LACTATED RINGER'S 1,000 ML IV PRN ×3 (17:14→21:01)
[2018-08-16] MEDS ORDERED: OXYTOCIN 30 UNITS/500 ML BAG IV PRN ×2 (17:14→17:28)
[2018-08-16] MEDS ORDERED: LACTATED RINGER'S 1,000 ML IV SCH (17:15)
[2018-08-16 17:53] LABS: Hematocrit (blood only) 36.5 % (37-47); Hemoglobin 12.2 g/dL (12.0-16.0); Mean Corpuscular Volume 87.5 fL (80-100); Mean Platelet Volume 11.7 fL (7.4-10.4); Platelet Count 219 K/uL (130-400); RDW Coefficient of Variation 13.9 % (11.5-14.5); RDW Standard Deviation 43.8 fL (36.4-46.3); Red Blood Count 4.17 M/uL (4.2-5.4); White Blood Count 10.28 K/uL (4.8-10.8)
[2018-08-16 18:06] LABS: Mean Corpuscular Hgb Conc 33.4 g/dL (32-36)
[2018-08-16 18:28] LABS: Hepatitis B Surface Antibody Non-Immune
[2018-08-16 18:39] LABS: Rubella IgG Antibody Immune (Immune)
[2018-08-16] MEDS: BUTORPHANOL TARTRATE 1 MG/ML VIAL IV PRN ×2 (18:39→19:41)
[2018-08-16] MEDS ORDERED: ePHEDrine sulfate 50 MG/ML AMP ONE (20:10)
[2018-08-16] MEDS ORDERED: BUPIVACAINE 0.25% 30 ML VIAL ONE (20:10)
[2018-08-16] MEDS ORDERED: fentaNYL citrate 100 MCG/2 ML VIAL ONE (20:10)
[2018-08-16] MEDS ORDERED: fentaNYL 2MCG/ML ROPIV 1.25MG/ML 100 ML BAG EPI ONE (20:11)
--- NOTE | 2018-08-16 20:48 | Anesthesiology Consultation ---
Date of Service August 16, 2018 Assessment & Plan (1) Encounter for pre-operative examination: Chart Review Chart Review: Patient NOT seen in Pre Admission Testing and Acceptable Risk for Labor Epidural Consults Requested none ASA ASA2 Proposed Anesthesia Anesthesia Type: Labor Epidural and CSE Risk / Benefits Reviewed With: PT / POA / Parent / Guardian, Accepts Plan and Informed Consent Obtained History Height/Weight Height: 5 ft 7 in Weight: 73.482 kg Allergies Allergy/AdvReac Type Severity Reaction Status Date / Time nickel AdvReac Rash Verified 08/16/18 16:31 Medications Home Medications Medication Instructions Recorded Confirmed Last Taken ferrous sulfate [iron] 325 mg PO BID 08/11/18 08/16/18 2 Days Ago ~08/09/18 vit-iron fum-folic ac 1 tab PO DAILY 08/11/18 08/16/18 08/15/18 08:00 [ Vitamin] Active Medications Generic Name Dose Route Start Last Admin Trade Name Freq PRN Reason Stop Dose Admin Butorphanol Tartrate 1 mg 08/16/18 17:00 08/16/18 19:41 Stadol IV 1 mg Q1H PRN Administration Pain Lactated Ringer's 1,000 mls @ 125 mls/hr 08/16/18 17:00 08/16/18 20:39 Lr IV 09/15/18 16:59 125 mls/hr .Q8H GENNY Administration Lactated Ringer's 1,000 mls @ 125 mls/hr 08/16/18 17:15 08/16/18 20:40 Lr IV 08/18/18 17:14 125 mls/hr .Q8H GENNY Administration Oxytocin 30 units in 500 mls @ 100 mls/hr 08/16/18 17:28 08/16/18 19:15 Pitocin IV 08/18/18 17:27 6 units/hr .Q5H PRN 100 mls/hr Labor Induction/Augmentation Titration Protocol 6 UNITS/HR Past Medical History Medical History Endocarditis Patient reports hospitalized at [facility] 3 years ago [place] teeth extracted Past Anesthesia History No Hx of Anesthesia Complications and No Family Hx of Anesthesia Complications History of PONV No Motion Sickness Screening History of Motion Sickness: No Social History Smoking Status: Former smoker tobacco type: cigarettes Smoking cigarettes per day: 3 Do You Dip or Chew Tobacco: No Hx Alcohol Use: No Hx Substance Use: No substance use type: does not use Exercise / Class Metabolic Activity II 4-5 Yardwork/Stairs/Walk up hill Review of Systems no chest pain or sob Physical Exam Vital Signs Last Vital Signs Temp 36.4 C L 08/16/18 15:26 Pulse 83 08/16/18 15:28 Resp 24 08/16/18 15:26 BP 139/87 08/16/18 15:28 ENMT Mouth: no TMJ abnormality Thyromental Distance: > or= 3.5 Finger Breadths Mallampati Class: II Neck normal visual inspection Respiratory normal respiratory effort Auscultation: lungs clear to auscultation bilaterally Cardiovascular Rate/Rhythm: regular rate and regular rhythm Musculoskeletal Spine: normal cervical ROM Neurologic moves all extremities Psychiatric Orientation: alert and oriented x 3 Testing Laboratory Results 08/16/18 17:43 Blood Type A Positive 08/16/18 17:43
[2018-08-16] MEDS ORDERED: DiphenhydrAMINE HCL 50 MG/ML VIAL IV PRN (21:01)
[2018-08-16] MEDS ORDERED: NALBUPHINE HCL INJ 10 MG/ML AMP IV PRN (21:01)
[2018-08-16] MEDS ORDERED: fentaNYL 2MCG/ML ROPIV 1.25MG/ML 100 ML BAG EPI PRN (21:01)
[2018-08-16] MEDS ORDERED: ONDANSETRON INJ 2 MG/ML 2 ML VIAL IV PRN (21:01)
[2018-08-16] MEDS ORDERED: NALOXONE HCL 0.4 MG/1 ML VIAL/CARP IV PRN (21:01)
[2018-08-16] MEDS ORDERED: NALOXONE HCL 1 MG in SODIUM CHLORIDE 0.9% 1000ML 1,000 ML IV PRN (21:01)
[2018-08-16] MEDS ORDERED: ePHEDrine sulfate 50 MG/ML AMP IV PRN (21:01)
[2018-08-17] MEDS ORDERED: ACETAMINOPHEN 325 MG TAB PO PRN (00:21)
[2018-08-17] MEDS ORDERED: DIPHTHERIA/TETANUS/PERTUSSIS 0.5 ML SYR/VIAL IM ONE (00:21)
[2018-08-17] MEDS ORDERED: BENZOCAINE 20% AER SPR 82.5 GM CAN EXT PRN (00:21)
[2018-08-17] MEDS ORDERED: BISACODYL 10 MG SUPP PR PRN (00:21)
[2018-08-17] MEDS ORDERED: OXYCODONE/ACETAMINOPHEN 5mg/325mg TAB PO PRN (00:21)
[2018-08-17] MEDS ORDERED: SUPERCREAM 0.870% 15 GM JAR EXT PRN (00:21)
[2018-08-17] MEDS ORDERED: HYDROCORTISONE ACETATE 25 MG SUPP PR PRN (00:21)
[2018-08-17] MEDS ORDERED: OXYTOCIN 30 UNITS/500 ML BAG IV PRN (00:21)
[2018-08-17] MEDS ORDERED: IBUPROFEN 600 MG TAB PO ONE (01:45)
[2018-08-17] MEDS: NICOTINE 21 MG/24 HR TDSY TD SCH ×3 (01:47→20:31)
--- NOTE | 2018-08-17 02:42 | Operative Report ---
DATE OF OPERATION: 08/17/2018 DELIVERY NOTE This is a 27-year-old 1, para 1, general health is good. She has been on Wellbutrin for depression. No known drug allergies. She was a smoker, quit a year ago but did vape during her . I saw her very late in her course. I made several attempts to get records and was unsuccessful. She stated that she had a due date of 08/18/2018. About a week prior to admission, she was seen in the office where we did an initial ultrasound which showed IUGR. The baby had good fluid. However, the abdominal circumference was about 4 weeks less than the head circumference. The head circumference was consistent with her due date of 08/18/2018. With this, she was given a diagnosis of intrauterine growth retardation, was followed for an additional week, had a nonstress testing and was admitted for induction of labor. The day we were supposed to admit her for induction, she called early in the morning and said she thought she was in labor, seen in the office, she was 4 cm dilated, 90% effaced. She was admitted to the hospital where she received several doses of Stadol for pain control. Eventually she was augmented with IV Pitocin and then went on to have epidural anesthesia from which she obtained good pain relief. She went to full dilatation. Membranes were ruptured surgically at about 6 cm. At that time, fluid was noted to be clear. Went to full dilatation, pushed out a live male via direct occiput anterior position over an intact perineum. was suctioned through the mouth and the nose. Cord was clamped, cut by the father then cord blood was obtained for blood banking. We obtained a maximum that we could. Then we also cut off a 10+ in section of cord for banking. Following this with IV Pitocin running, the placenta was removed intact. It was noted to be a very small placenta and was sent for exam. Hemostasis was good. Uterus contracted nicely. Inspection of the perineum revealed a very superficial laceration of the right labia minora. My own estimation 1 and 5 minute Apgars were 8 and 9 respectively. Estimated blood loss was 200 mL. The patient tolerated the procedure well and left the delivery room in good condition. I attest to the content of the Intraoperative Record and any orders documented therein. Any exception s are noted below.
[2018-08-17] MEDS: IBUPROFEN 600 MG TAB PO PRN ×3 (08:11→22:15)
[2018-08-17] MEDS: PRENATAL VITAMIN 1 TAB PO SCH (08:12)
[2018-08-17] MEDS: DOCUSATE SODIUM 100 MG CAP PO SCH ×2 (08:12→19:57)
[2018-08-17] MEDS: FERROUS SULFATE 325 MG TAB PO SCH (08:12)
--- NOTE | 2018-08-17 08:20 | Anesthesia Procedure Note ---
Date of Service August 17, 2018 Anesthesia Post Epidural Note Vital Signs Vital Signs: Temp Pulse Resp BP Pulse Ox 36.9 C 101 H 16 139/80 98 08/17/18 02:45 08/17/18 02:45 08/17/18 02:45 08/17/18 02:45 08/17/18 02:45 Pain Intensity Bilateral Abdomen: Pain Intensity: 4 Notes Mental Status: alert / awake / arousable and participated in evaluation Nausea / Vomiting: adequately controlled Pain: adequately controlled Airway Patency, RR, SpO2: stable & adequate BP & HR: stable & adequate Hydration State: stable & adequate Neuraxial Anesthesia: was administered and sensory block resolved Anesthetic Complications: no major complications apparent and Pt Satisfied with anesthetic care Epidural: Removed without complications and With tip intact
--- NOTE | 2018-08-17 08:50 | Obstetrical Progress Note ---
Date of Service August 17, 2018 Physical Exam Vital Signs (Past 24 Hours): Last Vital Signs Temp 36.5 C 08/17/18 08:27 Pulse 97 H 08/17/18 08:27 Resp 18 08/17/18 08:27 BP 149/84 H 08/17/18 08:27 Pulse Ox 98 08/17/18 02:45 Physical Exam: abdomen soft and non tender vaginal bleeding scant to moderate no calf tenderness ambulating well
[2018-08-17] MEDS: ACETAMINOPHEN W/CODEINE #3 1 TAB PO PRN ×3 (10:19→19:56)
[2018-08-18] MEDS: ACETAMINOPHEN W/CODEINE #3 1 TAB PO PRN ×3 (00:25→13:38)
[2018-08-18] MEDS: IBUPROFEN 600 MG TAB PO PRN ×2 (02:32→08:39)
[2018-08-18 08:02] LABS: Hematocrit (blood only) 34.2 % (37-47); Hemoglobin 11.5 g/dL (12.0-16.0); Mean Corpuscular Hgb Conc 33.6 g/dL (32-36); Mean Corpuscular Volume 87.5 fL (80-100); Mean Platelet Volume 10.9 fL (7.4-10.4); Platelet Count 205 K/uL (130-400); RDW Standard Deviation 44.4 fL (36.4-46.3); Red Blood Count 3.91 M/uL (4.2-5.4); White Blood Count 9.42 K/uL (4.8-10.8)
[2018-08-18] MEDS: DOCUSATE SODIUM 100 MG CAP PO SCH (08:39)
[2018-08-18] MEDS: PRENATAL VITAMIN 1 TAB PO SCH (08:39)
[2018-08-18] MEDS: FERROUS SULFATE 325 MG TAB PO SCH (08:39)
--- NOTE | 2018-08-18 11:07 | Obstetrical Progress Note ---
Date of Service August 18, 2018 Physical Exam Vital Signs (Past 24 Hours): Last Vital Signs Temp 36.7 C 08/18/18 08:20 Pulse 90 08/18/18 08:20 Resp 18 08/18/18 08:20 BP 125/79 08/18/18 08:20 Pulse Ox 98 08/18/18 08:20 Physical Exam: abdomen soft and non tender vaginal bleeding scant to moderate no calf tenderness ambulating well
[2018-08-18] MEDS ORDERED: BISACODYL 5 MG TABEC PO SCH (20:00)
== END 2018-08-18 16:05 | disposition home or self-care (01) | DRG 807 ==
LOC: 4S1 15:18 → 4S2 08-17 02:40